=== PATIENT | male | born 1930 | race African-American/Black ===

== ENCOUNTER 2017-04-12 10:26 | Emergency (ER) | payer MEDICARE, OTHER ==
[~2017-04-12 10:26] MED LIST: ATOR1TAB18 PO; COLC1CAP3 PO; FINA5TAB2 PO; MIRA25TA PO; NAME5TAB2 PO
[2017-04-12 10:41] VITALS: BP 128/65; PULSE 88; RESP 18; TEMP 99; O2SAT 99
[2017-04-12 10:52] VITALS: BP 128/65; PULSE 84; RESP 20; TEMP 99; O2SAT 100
[2017-04-12 11:29] LABS: BASOPHIL % 0.4 % (0.0-2.0); EOSINOPHIL % 0.7 % (0.0-4.0); HEMATOCRIT 25.8 % (39.0-51.0); HEMO FLAGS DIFF FINAL; LYMPH % 18.8 % (9.0-44.0); LYMPHOCYTE # 0.9 TH/MM3 (1.0-4.8); MEAN CELL VOLUME 83.1 FL (80.0-100.0); MEAN CORPUSCULAR HEMOGLOBIN 27.1 PG (27.0-34.0); MEAN CORPUSCULAR HGB CONC 32.6 % (32.0-36.0); MONO % 14.8 % (0.0-8.0); NEUT % 65.3 % (16.0-70.0); PLATELET COUNT 204 TH/MM3 (150-450); RED CELL DISTRIBUTION WIDTH 15.6 % (11.6-17.2); WHITE BLOOD COUNT 4.6 TH/MM3 (4.0-11.0)
[2017-04-12 11:54] LABS: ALT (GPT) 19 U/L (12-78); ANION GAP 8 MEQ/L (5-15); AST (GOT) 22 U/L (15-37); BICARBONATE 29.4 MEQ/L (21.0-32.0); BLOOD UREA NITROGEN 27 MG/DL (7-18); CHLORIDE 105 MEQ/L (98-107); GLOMERULAR FILTRATION RATE 18 ML/MIN (>89); POTASSIUM 4.6 MEQ/L (3.5-5.1); SODIUM (NA) 142 MEQ/L (136-145)
[2017-04-12 11:55] LABS: ALKALINE PHOSPHATASE 76 U/L (45-117); TOTAL BILIRUBIN ADULT 0.6 MG/DL (0.2-1.0)
--- NOTE | 2017-04-12 12:18 | RADRPT ---
EXAM DATE/TIME: 04/12/2017 11:25 [facility] COMPARISON: No previous studies available for comparison. INDICATIONS : Fell today, hurt his right elbow. MEDICAL HISTORY : Dialysis 3 x a week SURGICAL HISTORY : None. ENCOUNTER: Initial ACUITY: 1 day PAIN SCORE: 6/10 LOCATION: Right elbow FINDINGS: Multiple view examination of the right elbow demonstrates soft tissue swelling without joint effusion , or fracture. The osseous structures are in normal alignment. Surgical clips are seen in soft tissu es anteriorly. Bony mineralization is normal. CONCLUSION: Soft tissue swelling without acute fracture. Anastacio Deluna MD on April 12, 2017 at 12:14 Board Certified Radiologist. This report was verified electronically.
--- NOTE | 2017-04-12 12:19 | PD ---
HPI Chief Complaint: Dizziness Time Seen by Provider: 11:02 Travel History International Travel<30 days: No Contact w/Intl Traveler<30days: No Traveled to known affect area: No History of Present Illness HPI Send 87-year-old presents to the emergency department following a dizzy spell. Patient drove to his primary doctor. Got a shot in his foot for some kind of problem in his foot and pain. He was walking back out to the car when he felt dizzy and fell over. He did not have loss of consciousness. It was unwitnessed. Patient states he felt a little bit dizzy this morning. He otherwise has been feeling generally well and healthy. He complains only of pain in his right elbow. Denies any head pain chest pain trouble breathing or other symptoms. Since his only medical history is hemodialysis him on Tuesday and Tuesday. History Past Medical History Narrative Medical End-stage renal disease, hemodialysis Tuesday Hypertension according to records hyperlipidemia PNEUMOCCOCAL Vaccine (Year): 1 Social History Alcohol Use: No Tobacco Use: No Allergies-Medications (Allergen,Severity, Reaction): Coded Allergies: No Known Allergies (Verified , 09/24/16) Reported Meds & Prescriptions Reported Meds & Active Scripts Active Reported Colchicine 0.6 Mg Cap 0.6 Mg PO DAILY PRN Myrbetriq (Mirabegron) 25 Mg Tab 25 Mg PO DAILY Namenda (Memantine) 5 Mg Tab 5 Mg PO DAILY Atorvastatin (Atorvastatin Calcium) 80 Mg Tab 80 Mg PO HS Finasteride 5 Mg Tab 5 Mg PO DAILY Do not crush. Review of Systems Except as stated in HPI: all other systems reviewed are Neg Physical Exam Narrative GENERAL: Well-appearing 87-year-old man, no acute distress. SKIN: Focused skin assessment warm/dry. HEAD: Atraumatic. Normocephalic. EYES: Pupils equal and round. No scleral icterus. No injection or drainage. ENT: No nasal bleeding or discharge. Mucous membranes pink and moist. NECK: No midline tenderness. Full painless range of motion. CARDIOVASCULAR: Regular rate and rhythm. No murmur appreciated. RESPIRATORY: No accessory muscle use. Clear to auscultation. Breath sounds equal bilaterally. GASTROINTESTINAL: Abdomen soft, non-tender, nondistended. Hepatic and splenic margins not palpable. MUSCULOSKELETAL: No obvious deformities. No edema. Right AV fistula palpable thrill. NEUROLOGICAL: Awake and alert. No obvious cranial nerve deficits. Motor grossly within normal limits. Normal speech. PSYCHIATRIC: Appropriate mood and affect; insight and judgment normal. Data Data Last Documented VS Vital Signs Date Time Temp Pulse Resp B/P Pulse Ox O2 Delivery O2 Flow Rate FiO2 04/12/17 10:52 88 20 99 Room Air 04/12/17 10:52 99.0 128/65 Orders Electrocardiogram (04/12/17 10:56) Complete Blood Count With Diff (04/12/17 10:56) Comprehensive Metabolic Panel (04/12/17 10:56) Iv Access Insert/Monitor (04/12/17 10:56) Ct Brain W/O Iv Contrast(Rout) (04/12/17 ) Elbow, Complete (4 Vws) (04/12/17 ) Labs Laboratory Tests Test 04/12/17 11:06 White Blood Count 4.6 TH/MM3 Red Blood Count 3.10 MIL/MM3 Hemoglobin 8.4 GM/DL Hematocrit 25.8 % Mean Corpuscular Volume 83.1 FL Mean Corpuscular Hemoglobin 27.1 PG Mean Corpuscular Hemoglobin 32.6 % Concent Red Cell Distribution Width 15.6 % Platelet Count 204 TH/MM3 Mean Platelet Volume 8.3 FL Neutrophils (%) (Auto) 65.3 % Lymphocytes (%) (Auto) 18.8 % Monocytes (%) (Auto) 14.8 % Eosinophils (%) (Auto) 0.7 % Basophils (%) (Auto) 0.4 % Neutrophils # (Auto) 3.0 TH/MM3 Lymphocytes # (Auto) 0.9 TH/MM3 Monocytes # (Auto) 0.7 TH/MM3 Eosinophils # (Auto) 0.0 TH/MM3 Basophils # (Auto) 0.0 TH/MM3 CBC Comment DIFF FINAL Differential Comment Sodium Level 142 MEQ/L Potassium Level 4.6 MEQ/L Chloride Level 105 MEQ/L Carbon Dioxide Level 29.4 MEQ/L Anion Gap 8 MEQ/L Blood Urea Nitrogen 27 MG/DL Creatinine 3.89 MG/DL Estimat Glomerular Filtration 18 ML/MIN Rate Random Glucose 90 MG/DL Calcium Level 9.2 MG/DL Total Bilirubin 0.6 MG/DL Aspartate Amino Transf 22 U/L (AST/SGOT) Alanine Aminotransferase 19 U/L (ALT/SGPT) Alkaline Phosphatase 76 U/L Total Protein 7.1 GM/DL Albumin 3.3 GM/DL MDM Medical Decision Making Medical Screen Exam Complete: Yes Emergency Medical Condition: Yes Interpretation(s) My review of EKG: Normal sinus rhythm at a rate of 88, leftward axis, septal Q waves, no definite evidence of acute ischemia. Compared to previous EKG from September 24, 2016, no significant change. LABS: CBC remarkable for mild anemia, roughly consistent with baseline although gently downward trending over the past year or so. CMP remarkable for elevated BUN/creatinine. X-ray right elbow: Soft tissue swelling without fracture. CT head: Negative. Differential Diagnosis Lightheadedness, anemia, electrolyte abnormality, infection, other Narrative Course Medical decision-making 87 year-old woman presents emergent department of lightheadedness and dizziness. Looks overall well. We'll check CT head for any evidence of injury from fall. We'll check EKG and labs. Likely discharge if negative. Wong Azevedo MD Apr 12, 2017 12:19
--- NOTE | 2017-04-12 12:19 | RADRPT ---
EXAM DATE/TIME: 04/12/2017 11:52 [facility] COMPARISON: CT BRAIN W/O CONTRAST, March 02, 2016, 21:33. INDICATIONS : Syncopal episode today, hit back of head RADIATION DOSE: 39.69 CTDIvol (mGy) MEDICAL HISTORY : Hypertension. Renal failure, chronic. SURGICAL HISTORY : None. ENCOUNTER: Initial ACUITY: 1 day PAIN SCALE: 2/10 LOCATION: occipital TECHNIQUE: Multiple contiguous axial images were obtained of the head. Using automated exposure control and adj ustment of the mA and/or kV according to patient size, radiation dose was kept as low as reasonably a chievable to obtain optimal diagnostic quality images. FINDINGS: CEREBRUM: The ventricles are normal for age. There is low attenuation throughout the white matter. No evidence of midline shift, mass lesion, hemorrhage or acute infarction. No extra-axial fluid collections are seen. POSTERIOR FOSSA: The cerebellum and brainstem are intact. The 4th ventricle is midline. The cerebellopontine angle i s unremarkable. EXTRACRANIAL: The visualized portion of the orbits is intact. SKULL: The calvaria is intact. No evidence of skull fracture. CONCLUSION: No acute intracranial disease. Nonspecific white matter changes. Anastacio Deluna MD on April 12, 2017 at 12:16 Board Certified Radiologist. This report was verified electronically.
--- NOTE | 2017-04-12 17:09 | EKG ---
Date Performed: 04/12/2017 Time Performed: 10:46:27 PTAGE: 87 years EKG: Sinus rhythm POSSIBLE LEFT ATRIAL ENLARGEMENT SEPTAL MYOCARDIAL INFARCTION ABNORMAL ECG PREVIOUS TRACING : 09/24/2016 10.00 No significant change from previous tracing noted. DOCTOR: Yahir Moran Interpretating Date/Time 04/12/2017 17:06:45
== END 2017-04-12 15:12 | disposition home or self-care (01) ==
LOC: NEPC 10:26
DX: R42 Dizziness and giddiness (principal); R94.31 Abnormal electrocardiogram [ECG] [EKG]; M25.521 Pain in right elbow; N18.6 End stage renal disease; Z99.2 Dependence on renal dialysis
CPT/HCPCS: 70450; 73080; 80053; 85025; 93005

== ENCOUNTER 2017-04-23 19:28 | Observation (INO) | payer MEDICARE, OTHER ==
[~2017-04-23] VITALS: Ht 177.8 cm; Wt 70.0 kg
[2017-04-23 19:38] VITALS: BP 172/80; PULSE 100; RESP 18; TEMP 98.1; O2SAT 99
[2017-04-23] MEDS ORDERED: SODIUM CHLORIDE 0.9% FLUSH 10 ML FLUSH IVF PRN (19:45)
--- NOTE | 2017-04-23 19:49 | PD ---
HPI Chief Complaint: Syncope/Near-Syncope Time Seen by Provider: 19:49 Travel History International Travel<30 days: No Contact w/Intl Traveler<30days: No Traveled to known affect area: No History of Present Illness HPI 87-year-old male with history of hypertension, hypercholesterolemia, end-stage renal disease on hemodialysis Tuesday, Tuesday, Tuesday, presents the emergency department following a fall episode. Patient does not recall the fall but remembers being on the ground. He believes this was for 25 minutes "or so" before [facility] arrived. He believes the neighbor may have called [facility]. We [facility] arrived, they found him in a supine position on the floor. Patient does not believe he hit his head but cannot recall. Patient reports no chest or tightness. No difficulty breathing. States that at times he does feel dizzy. Patient was seen and evaluated here in April 13 following a syncopal episode area he is discharged home at that time. Patient has no other symptoms. He does live alone. PFSH Past Medical History Arthritis: No Asthma: No Anxiety: No Heart Rhythm Problems: No Cancer: No Cardiovascular Problems: No High Cholesterol: Yes Chest Pain: No Congestive Heart Failure: No COPD: No Cerebrovascular Accident: No Diabetes: No Dialysis: Yes Gastrointestinal Disorders: No GERD: No Headaches: No Hepatitis: No Hiatal Hernia: No Hypertension: Yes Implanted Vascular Access Dvce: Yes (AV SHUNT RUE 07/07/11) Kidney Stones: No Medical other: Yes (arthritis,anemia) Musculoskeletal: No Neurologic: No Psychiatric: No Reproductive: No Respiratory: No Migraines: No Renal Failure: Yes Seizures: No Sleep Apnea: No Thyroid Disease: No Ulcer: No PNEUMOCCOCAL Vaccine (Year): 1 ?: Not Past Surgical History Abdominal Surgery: No AICD: No Arteriovenous Shunt: No Cardiac Surgery: No Ear Surgery: No Endocrine Surgery: No Eye Surgery: No Genitourinary Surgery: No Gynecologic Surgery: No Insulin Pump: No Oral Surgery: Yes (t and a) Pacemaker: No Thoracic Surgery: Yes Tonsillectomy: Yes (T&A) Other Surgery: Yes (R. A/V FISTULA) Social History Alcohol Use: No Tobacco Use: No Substance Use: No Allergies-Medications (Allergen,Severity, Reaction): Coded Allergies: No Known Allergies (Verified , 04/23/17) Reported Meds & Prescriptions Reported Meds & Active Scripts Active Reported Colchicine 0.6 Mg Cap 0.6 Mg PO DAILY PRN Myrbetriq (Mirabegron) 25 Mg Tab 25 Mg PO DAILY Namenda (Memantine) 5 Mg Tab 5 Mg PO DAILY Atorvastatin (Atorvastatin Calcium) 80 Mg Tab 80 Mg PO HS Finasteride 5 Mg Tab 5 Mg PO DAILY Do not crush. Review of Systems Except as stated in HPI: all other systems reviewed are Neg Physical Exam Narrative GENERAL: Thin elderly male patient, lying in the stretcher, in no acute distress. SKIN: Focused skin assessment warm/dry. HEAD: Atraumatic. Normocephalic. EYES: Pupils equal and round. No scleral icterus. No injection or drainage. ENT: No nasal bleeding or discharge. Mucous membranes pink and moist. NECK: Trachea midline. CARDIOVASCULAR: Regular rate and rhythm. 3/6 systolic murmur appreciated. RESPIRATORY: No accessory muscle use. Clear to auscultation. Breath sounds equal bilaterally. GASTROINTESTINAL: Abdomen soft, non-tender, nondistended. Hepatic and splenic margins not palpable. MUSCULOSKELETAL: No obvious deformities. No clubbing. No cyanosis. 2+ left lower extremity edema. Distal pulses are palpable. Right upper extremity fistula with palpable thrill and audible bruit. NEUROLOGICAL: Awake and alert. No obvious cranial nerve deficits. Motor grossly within normal limits. Normal speech. Data Data Last Documented VS Vital Signs Date Time Temp Pulse Resp B/P Pulse Ox O2 Delivery O2 Flow Rate FiO2 04/23/17 19:56 99 Room Air 04/23/17 19:38 98.1 100 18 172/80 Orders Electrocardiogram (04/23/17 19:44) Basic Metabolic Panel (Bmp) (04/23/17 19:44) Complete Blood Count With Diff (04/23/17 19:44) Magnesium (Mg) (04/23/17 19:44) B-Type Natriuretic Peptide (04/23/17 19:44) Ckmb (Isoenzyme) Profile (04/23/17 19:44) Troponin I (04/23/17 19:44) Act Partial Throm Time (Ptt) (04/23/17 19:44) Prothrombin Time / Inr (Pt) (04/23/17 19:44) Chest, Single Ap (04/23/17 19:44) Ct Brain W/O Iv Contrast(Rout) (04/23/17 19:44) Ecg Monitoring (04/23/17 19:44) Iv Access Insert/Monitor (04/23/17 19:44) Oximetry (04/23/17 19:44) Sodium Chloride 0.9% Flush (Ns Flush) (04/23/17 19:45) Us Leg Venous Doppler (04/23/17 ) Labs Laboratory Tests Test 04/23/17 19:40 White Blood Count 8.4 TH/MM3 Red Blood Count 3.52 MIL/MM3 Hemoglobin 9.6 GM/DL Hematocrit 29.4 % Mean Corpuscular Volume 83.4 FL Mean Corpuscular Hemoglobin 27.3 PG Mean Corpuscular Hemoglobin 32.7 % Concent Red Cell Distribution Width 16.0 % Platelet Count 249 TH/MM3 Mean Platelet Volume 8.3 FL Neutrophils (%) (Auto) 72.4 % Lymphocytes (%) (Auto) 14.4 % Monocytes (%) (Auto) 12.5 % Eosinophils (%) (Auto) 0.3 % Basophils (%) (Auto) 0.4 % Neutrophils # (Auto) 6.1 TH/MM3 Lymphocytes # (Auto) 1.2 TH/MM3 Monocytes # (Auto) 1.0 TH/MM3 Eosinophils # (Auto) 0.0 TH/MM3 Basophils # (Auto) 0.0 TH/MM3 CBC Comment DIFF FINAL Differential Comment Prothrombin Time 11.0 SEC Prothromb Time International 1.0 RATIO Ratio Activated Partial 30.6 SEC Thromboplast Time Sodium Level 136 MEQ/L Potassium Level 4.6 MEQ/L Chloride Level 101 MEQ/L Carbon Dioxide Level 29.3 MEQ/L Anion Gap 6 MEQ/L Blood Urea Nitrogen 41 MG/DL Creatinine 3.79 MG/DL Estimat Glomerular Filtration 18 ML/MIN Rate Random Glucose 98 MG/DL Calcium Level 9.1 MG/DL Magnesium Level 2.0 MG/DL Total Creatine Kinase 98 U/L Troponin I LESS THAN 0.02 NG/ML B-Type Natriuretic Peptide 96 PG/ML MDM Medical Decision Making Medical Screen Exam Complete: Yes Emergency Medical Condition: Yes Medical Record Reviewed: Yes Differential Diagnosis Syncope versus near-syncope versus electrode abnormality versus cardiac etiology versus intracranial etiology versus minor head injury Narrative Course 87-year-old male presents to the emergency department following a syncopal episode. Patient appears without distress. He is moderately hypertensive. He also has left lower extremity swelling which he states he has noticed over the last week. Denies any pain. No Obvious trauma. CBC and BMP are consistent with previous lab work. BNP is 96. I discussed the patient with my attending physician. Being that this is the second syncopal episode in 2 weeks, we feel it is in the patient's best interest to be admitted for further syncopal workup. A call is made to [facility] for admission. Patient is in agreement with this plan of care. His cousin is at bedside and feels comfortable as well as the splenic care as patient does reside alone. Diagnosis Primary Impression: Syncope Qualified Code: R55 - Syncope, unspecified syncope type Additional Impressions: End stage renal disease Dementia Qualified Code: F03.90 - Dementia without behavioral disturbance, unspecified dementia type Admitting Information Admitting Physician Requests: Observation Condition: Stable Liza Chan Apr 23, 2017 19:49
[2017-04-23 19:56] VITALS: O2SAT 99
--- NOTE | 2017-04-23 20:06 | RADRPT ---
EXAM DATE/TIME: 04/23/2017 19:59 [facility] COMPARISON: CHEST SINGLE AP, March 12, 2016, 5:29. INDICATIONS : Heart palpitations. MEDICAL HISTORY : Hypercholesterolemia. Hypertension. Arthritis. Renal failure. Anemia. Gout. Pneumothorax. SURGICAL HISTORY : Tonsillectomy. AV shunt right arm. ENCOUNTER: Initial ACUITY: 1 day PAIN SCORE: 0/10 LOCATION: Bilateral chest FINDINGS: The heart size is normal. The lungs are clear. No effusion is seen. There are old healed right rib fr actures. There is a vascular stent seen in the right subclavian region. CONCLUSION: No acute abnormality seen. Samuel Arnold MD on April 23, 2017 at 20:03 Board Certified Radiologist. This report was verified electronically.
[2017-04-23 20:24] LABS: AUTOMATED NEUTROPHIL # 6.1 TH/MM3 (1.8-7.7); BASOPHIL % 0.4 % (0.0-2.0); EOSINOPHIL % 0.3 % (0.0-4.0); HEMATOCRIT 29.4 % (39.0-51.0); HEMO FLAGS DIFF FINAL; LYMPH % 14.4 % (9.0-44.0); LYMPHOCYTE # 1.2 TH/MM3 (1.0-4.8); MEAN CELL VOLUME 83.4 FL (80.0-100.0); MEAN CORPUSCULAR HEMOGLOBIN 27.3 PG (27.0-34.0); MEAN CORPUSCULAR HGB CONC 32.7 % (32.0-36.0); MONO % 12.5 % (0.0-8.0); NEUT % 72.4 % (16.0-70.0); PLATELET COUNT 249 TH/MM3 (150-450); RED BLOOD COUNT 3.52 MIL/MM3 (4.50-5.90); WHITE BLOOD COUNT 8.4 TH/MM3 (4.0-11.0)
[2017-04-23 20:38] LABS: APTT (PATIENT) 30.6 SEC (24.3-30.1)
--- NOTE | 2017-04-23 20:42 | RADRPT ---
EXAM DATE/TIME: 04/23/2017 19:59 [facility] COMPARISON: CT BRAIN W/O CONTRAST, April 12, 2017, 11:52. INDICATIONS : Syncopal episode today. RADIATION DOSE: 56.35 CTDIvol (mGy) MEDICAL HISTORY : Hypertension. SURGICAL HISTORY : AV shunt ENCOUNTER: Initial ACUITY: 1 day PAIN SCALE: 0/10 LOCATION: Bilateral head TECHNIQUE: Multiple contiguous axial images were obtained of the head. Using automated exposure control and adj ustment of the mA and/or kV according to patient size, radiation dose was kept as low as reasonably a chievable to obtain optimal diagnostic quality images. DICOM format image data is available electro nically for review and comparison. FINDINGS: CEREBRUM: The ventricles and cortical sulci are widened. There is low density seen throughout the cerebral whi te matter. No evidence of midline shift, mass lesion, hemorrhage or acute infarction. No extra-axial fluid collections are seen. POSTERIOR FOSSA: The cerebellum and brainstem are intact. The 4th ventricle is midline. The cerebellopontine angle i s unremarkable. EXTRACRANIAL: The visualized portion of the orbits is intact. SKULL: The calvaria is intact. No evidence of skull fracture. CONCLUSION: 1. No acute intracranial abnormality seen. 2. Age-related atrophy. 3. Decreased density in the cerebral white matter likely related to diffuse small vessel ischemic dem yelination. Samuel Arnold MD on April 23, 2017 at 20:38 Board Certified Radiologist. This report was verified electronically.
[2017-04-23 20:44] LABS: ANION GAP 6 MEQ/L (5-15); BICARBONATE 29.3 MEQ/L (21.0-32.0); BLOOD UREA NITROGEN 41 MG/DL (7-18); CHLORIDE 101 MEQ/L (98-107); GLOMERULAR FILTRATION RATE 18 ML/MIN (>89); POTASSIUM 4.6 MEQ/L (3.5-5.1); SODIUM (NA) 136 MEQ/L (136-145)
[2017-04-23 20:55] LABS: CREATINE KINASE 98 U/L (39-308)
--- NOTE | 2017-04-23 21:23 | RADRPT ---
EXAM DATE/TIME: 04/23/2017 20:15 [facility] COMPARISON: No previous studies available for comparison. INDICATIONS : Left leg swelling. MEDICAL HISTORY : Hypercholesterolemia. Hypertension. Arthritis. Renal failure. Anemia. Gout. Pneumothorax. SURGICAL HISTORY : Tonsillectomy. AV shunt right arm. ENCOUNTER: Initial ACUITY: 4 - 6 days PAIN SCORE: 5/10 LOCATION: Left leg. TECHNIQUE: Venous ultrasound of the leg was performed from the inguinal ligament to the proximal calf. Real-salvatore e, color Doppler and spectral tracing, compression and augmentation techniques were used. FINDINGS: There is normal compressibility of the deep venous system from the inguinal region to the proximal ca lf. No echogenic clot is seen in the lumen of the common femoral, femoral, popliteal, and posterior tibial veins. There is a normal response of the venous system to proximal and distal augmentation an d respiration. CONCLUSION: No DVT. Samuel Arnold MD on April 23, 2017 at 21:20 Board Certified Radiologist. This report was verified electronically.
[2017-04-23] MEDS ORDERED: SODIUM CHLOR 0.9% 1000 ML INJ 1,000 ML IV SCH (21:57)
[2017-04-23] MEDS ORDERED: ACETAMINOPHEN 325 MG TAB PO PRN (22:00)
[2017-04-23] MEDS ORDERED: SODIUM CHLORIDE 0.9% FLUSH 10 ML FLUSH IV FLUSH PRN (22:00)
[2017-04-23] MEDS ORDERED: LACTULOSE SYRUP 20 GM/30 ML CUP PO PRN (22:00)
[2017-04-23] MEDS ORDERED: BISACODYL 10 MG SUPP RECTAL PRN (22:00)
[2017-04-23] MEDS ORDERED: ONDANSETRON HCL 4 MG/2 ML VIAL IVP PRN (22:00)
[2017-04-23] MEDS ORDERED: ACETAMINOPHEN/HYDROcodone 325 MG/5 MG TAB PO PRN (22:00)
[2017-04-23] MEDS ORDERED: MAGNESIUM HYDROXIDE SUSP 30 ML CUP PO PRN (22:00)
[2017-04-23] MEDS ORDERED: SENNOSIDES 8.6 MG TAB PO PRN (22:00)
[2017-04-23] MEDS ORDERED: ACETAMINOPHEN/HYDROcodone 325 MG/10 MG TAB PO PRN (22:00)
--- NOTE | 2017-04-23 22:02 | HHI.HP ---
[facility] Primary Care Physician Samuel Padron MD Admission Diagnosis Syncope; ESRD Diagnoses: (1) Syncope Diagnosis: Principal (2) HTN (hypertension) Diagnosis: Principal (3) ESRD (end stage renal disease) on dialysis Diagnosis: Principal (4) Dementia Diagnosis: Principal Travel History International Travel<30 Days: No Contact w/Intl Traveler <30 Da: No Traveled to Known Affected Are: No History of Present Illness This is an 87-year-old male with a PMH of HTN, Hyperlipidemia and ESRD on HD M/W /F who was brought to the ER by EMS after syncopal event. Pt is poor historian and has little recall of events, but believes his neighbor called 911 after she came to check on him and found him on the floor. Does report episodes of dizziness, previous ER visit 04/12/17 for dizziness w/ near syncopal event, negative work up at that time and d/c'd home from ER w/ outpatient follow up. On arrival, BP 172/80, HR 100, O2 sat 99% on RA, Afebrile. CBC at baseline. Creatinine 3.79, previously 3.89 on 04/12/17. Troponin negative. INR 1.0. CT Head with no acute findings. CXR negative. LE Doppler negative for DVT. Pt lives at home alone, unsafe d/c home in light of recurrent pre-syncope/syncopal event. Review of Systems Except as stated in HPI: all other systems reviewed are Neg ROS: 14 point review of systems otherwise negative. Past Family Social History Past Medical History PMH: HTN, Hyperlipidemia and ESRD on HD M/W/F Past Surgical History PAST SURGICAL HISTORY: Tonsillectomy, RUE AV Fistula Allergies: Coded Allergies: No Known Allergies (Verified , 04/23/17) Family History PAST FAMILY HISTORY: Reviewed. No h/o DM or CAD Social History PAST SOCIAL HISTORY: Negative for alcohol, tobacco or drugs. Physical Exam Vital Signs Vital Signs Date Time Temp Pulse Resp B/P Pulse Ox O2 Delivery O2 Flow Rate FiO2 04/23/17 19:56 99 Room Air 04/23/17 19:38 98.1 100 18 172/80 99 Physical Exam PE: GENERAL: Thin, elderly black male in no acute distress. HEENT: PERRLA, EOMI. No scleral icterus or conjunctival pallor. No lid lag or facial droop. CARDIOVASCULAR: Regular rate and rhythm. No obvious murmurs to auscultation. No chest tenderness to palpation. RESPIRATORY: No obvious rhonchi or wheezing. Clear to auscultation. Breath sounds equal bilaterally. GASTROINTESTINAL: Abdomen soft, non-tender, nondistended. BS normal. MUSCULOSKELETAL: Extremities without clubbing, cyanosis, or edema. No obvious deformities. RUE AV Fistula w/ good thrill. NEUROLOGICAL: Awake, alert and oriented x4. No focal neurologic deficits. Moving both upper and lower extremities spontaneously. Laboratory Laboratory Tests Test 04/23/17 19:40 White Blood Count 8.4 Red Blood Count 3.52 Hemoglobin 9.6 Hematocrit 29.4 Mean Corpuscular Volume 83.4 Mean Corpuscular Hemoglobin 27.3 Mean Corpuscular Hemoglobin 32.7 Concent Red Cell Distribution Width 16.0 Platelet Count 249 Mean Platelet Volume 8.3 Neutrophils (%) (Auto) 72.4 Lymphocytes (%) (Auto) 14.4 Monocytes (%) (Auto) 12.5 Eosinophils (%) (Auto) 0.3 Basophils (%) (Auto) 0.4 Neutrophils # (Auto) 6.1 Lymphocytes # (Auto) 1.2 Monocytes # (Auto) 1.0 Eosinophils # (Auto) 0.0 Basophils # (Auto) 0.0 CBC Comment DIFF FINAL Differential Comment Prothrombin Time 11.0 Prothromb Time International 1.0 Ratio Activated Partial 30.6 Thromboplast Time Sodium Level 136 Potassium Level 4.6 Chloride Level 101 Carbon Dioxide Level 29.3 Anion Gap 6 Blood Urea Nitrogen 41 Creatinine 3.79 Estimat Glomerular Filtration 18 Rate Random Glucose 98 Calcium Level 9.1 Magnesium Level 2.0 Total Creatine Kinase 98 Troponin I LESS THAN 0.02 B-Type Natriuretic Peptide 96 Result Diagram: 04/23/17193904/23/171939 Assessment and Plan Problem List: (1) Syncope ICD Code: R55 Status: Acute (2) HTN (hypertension) ICD Code: I10 Status: Acute (3) ESRD (end stage renal disease) on dialysis ICD Code: N18.6 Status: Acute (4) Dementia ICD Code: F03.90 Status: Acute Assessment and Plan A/P: 1. Syncope: Recurrent. Recent ER visit for pre-syncopal event, pt w/ no recollection of syncope on this occasion, found down by EMS. CT Head w/ no acute findings, images reviewed by me. Trop negative, EKG w/ no acute changes. Will admit for observation as unsafe d/c home. PT for eval/tx. Case Management for assistance w/ d/c planning. Check serial cardiac enzymes to eval for underlying ischemia. Check U/a, IVF for hydration. 2. HTN: BP 170's on arrival, will monitor, start antihypertensives as needed. 3. ESRD on HD: M/W/F, follows w/ Dr. Toribio, will consult if needed. Last HD Tuesday without complications. 4. Dementia: Resume home Namenda. 5. DVT Prophylaxis: SCD/Teds. 6. Social work for d/c planning as needed. 7. Case discussed w/ ER physician at length. Problem Qualifiers (1) Syncope: Qualified Code: R55 - Syncope, unspecified syncope type (2) Dementia: Qualified Code: F03.90 - Dementia without behavioral disturbance, unspecified dementia type Maria Luisa Roberts MD Apr 23, 2017 22:02
[2017-04-23 22:42] VITALS: BP 132/64; PULSE 90; RESP 18; O2SAT 99
[2017-04-23 23:02] VITALS: BP 147/69; PULSE 70; RESP 21; TEMP 98.1; O2SAT 100
[2017-04-23 23:25] VITALS: PULSE 84
[2017-04-24] VITALS (11 sets, daily range): BP systolic 110–134; BP diastolic 51–62; PULSE 60–102; RESP 15–20; TEMP 96.4–98.6; O2SAT 96–100
[2017-04-24 07:26] LABS: BASOPHIL % 0.3 % (0.0-2.0); EOSINOPHIL % 0.5 % (0.0-4.0); HEMATOCRIT 26.6 % (39.0-51.0); HEMO FLAGS DIFF FINAL; LYMPH % 19.9 % (9.0-44.0); LYMPHOCYTE # 1.2 TH/MM3 (1.0-4.8); MEAN CELL VOLUME 83.1 FL (80.0-100.0); MEAN CORPUSCULAR HEMOGLOBIN 27.4 PG (27.0-34.0); MONO % 12.6 % (0.0-8.0); NEUT % 66.7 % (16.0-70.0); PLATELET COUNT 210 TH/MM3 (150-450); RED CELL DISTRIBUTION WIDTH 15.5 % (11.6-17.2); WHITE BLOOD COUNT 5.9 TH/MM3 (4.0-11.0)
[2017-04-24 07:45] LABS: ANION GAP 7 MEQ/L (5-15); AST (GOT) 14 U/L (15-37); BLOOD UREA NITROGEN 43 MG/DL (7-18); CHLORIDE 106 MEQ/L (98-107); GLOMERULAR FILTRATION RATE 18 ML/MIN (>89); POTASSIUM 4.6 MEQ/L (3.5-5.1); SODIUM (NA) 138 MEQ/L (136-145)
[2017-04-24 07:46] LABS: ALT (GPT) 16 U/L (12-78)
[2017-04-24 07:49] LABS: ALKALINE PHOSPHATASE 71 U/L (45-117); TOTAL BILIRUBIN ADULT 0.6 MG/DL (0.2-1.0)
--- NOTE | 2017-04-24 08:23 | HHI.PR ---
Subjective Remarks Follow-up for syncope. Patient states that he was in his kitchen last night with a friend making dinner and had a syncopal episode. He does think that he felt dizzy prior to the episode. He believes he didn't lose consciousness, but just for a few seconds. He denies any chest pain or shortness of breath. He normally ambulates with a cane at baseline. He denies any recent illness, vomiting, diarrhea. He states she's been eating well. He denies any prior episodes of passing out. Currently he is asymptomatic without complaints. His forms analyst is Dr. Toribio. He is oriented to his birthday, home address, month , year, knows he is in [place]. Objective Vitals Vital Signs Date Time Temp Pulse Resp B/P Pulse Ox O2 Delivery O2 Flow Rate FiO2 04/24/17 08:02 76 04/24/17 04:34 97.8 60 18 134/62 97 04/24/17 03:36 78 04/23/17 23:25 84 04/23/17 23:02 98.1 70 21 147/69 100 04/23/17 22:42 90 18 132/64 99 Nasal Cannula 2 04/23/17 19:56 99 Room Air 04/23/17 19:38 98.1 100 18 172/80 99 Result Diagram: 04/24/17 0633 04/24/17 0655 Imaging Last Impressions Head CT 04/23/171943 Signed Impressions: Service Date/Time: Sunday, April 23, 2017 19:59 - CONCLUSION: 1. No acute intracranial abnormality seen. 2. Age-related atrophy. 3. Decreased density in the cerebral white matter likely related to diffuse small vessel ischemic demyelination. Samuel Arnold MD Chest X-Ray 04/23/171943 Signed Impressions: Service Date/Time: Sunday, April 23, 2017 19:59 - CONCLUSION: No acute abnormality seen. Samuel Arnold MD Lower Extremity Ultrasound 04/23/17 0000 Signed Impressions: Service Date/Time: Sunday, April 23, 2017 20:15 - CONCLUSION: No DVT. Samuel Arnold MD Objective Remarks GENERAL: Well-developed well-nourished. In no acute distress. Oriented 4. SKIN: Warm and dry. RUE AVF with good thrill. HEENT: Normocephalic. Pupils equal and round. Mucous membranes pink and moist. CARDIOVASCULAR: Regular rate and rhythm. No murmur appreciated. RESPIRATORY: No accessory muscle use. Clear to auscultation. Breath sounds equal bilaterally. GASTROINTESTINAL: Abdomen soft, non-tender, nondistended. Bowel sounds x4. MUSCULOSKELETAL: No obvious deformities. No clubbing or cyanosis. No edema. NEUROLOGICAL: Awake and alert. No focal neurological deficits. Moves upper and lower extremities spontaneously. Normal speech. Strength 5/5. PSYCHIATRIC: Appropriate mood and affect; insight and judgment normal. A/P Problem List: (1) Syncope ICD Code: R55 Status: Acute (2) HTN (hypertension) ICD Code: I10 Status: Chronic (3) ESRD (end stage renal disease) on dialysis ICD Code: N18.6 Status: Chronic (4) Dementia ICD Code: F03.90 Status: Chronic Assessment and Plan 87-year-old male with a PMH of HTN, Hyperlipidemia and ESRD on HD M/W/ who presented after syncopal event Syncope: Sounds vasovagal. Reviewed: CT Head w/ no acute findings. Trop negative 3. EKG w/ no acute changes. Telemetry unremarkable overnight. -PT for eval/tx. -Orthostatics -Carotid ultrasound -Echocardiogram HTN: By history, although on no antihypertensives. Monitor. ESRD on HD: Chronic, stable. Consult nephrology to continue dialysis while admitted. Dementia: Oriented 4. Continue home Namenda. DVT Prophylaxis: SCD/Teds. Discharge Planning 1730 echocardiogram reviewed and essentially unremarkable. Non-orthostatic. Walked with PT, would benefit from a walker, otherwise no restrictions. D/W Dr. Stevens. Ok to DC if carotid ultrasound is unremarkable, which it was. Discussed with case management, patient has walker at home. At this point, the patient is medically clear for discharge regarding syncope. Unfortunately, the patient made extensive plans for discharge tomorrow. Currently, his neighbor on his street has the keys to his house for safe keeping , and his neighbor will not be available to give him the keys to his house from him until tomorrow, and thus he is not able to get into his house today. His cousin from [facility] was going to go supervisor picking crew the keys tomorrow, and then come and supervisor picking crew the patient from the hospital. The patient is scheduled for dialysis as outpatient at 9 AM tomorrow. Discussed with RN, who will contact the on-call case management. At this point, we are not able to discharge the patient today because he would not have access to his house. Also, we will need to make sure that arrangements are made for dialysis tomorrow as inpatient or outpatient. May have to admit the patient for inpatient dialysis per nephrology. Problem Qualifiers (1) Syncope: Qualified Code: R55 - Syncope, unspecified syncope type (2) HTN (hypertension): Qualified Code: I10 - Essential hypertension (3) Dementia: Qualified Code: F03.90 - Dementia without behavioral disturbance, unspecified dementia type Dexter Laureano Apr 24, 2017 08:23
[2017-04-24 08:51] LABS: BACTERIA, URINE RARE /hpf; BLOOD, URINE NEG (NEG); COMMENT (UR) CULT NOT INDICATED; CULTURE IF INDICATED CULT NOT INDICATED; GLUCOSE,URINE NEG (NEG); KETONE, URINE NEG (NEG); MUCUS URINE FEW /lpf (OCC); NITRITE,URINE NEG (NEG); PH, URINE 7.5 (5.0-8.5); SQUAMOUS EPITHELIAL CELL URINE <1 /hpf (0-5); URINE COLOR YELLOW (YELLW/STRAW)
[2017-04-24] MEDS ORDERED: NON-FORMULARY DRUG (Mirabegron (Myrbetriq) 25 MG) PO SCH (09:00)
[2017-04-24] MEDS: FINASTERIDE 5 MG TAB PO SCH (09:13)
[2017-04-24] MEDS: MEMANTINE HCL 5 MG TAB PO SCH (09:13)
[2017-04-24] MEDS: SODIUM CHLORIDE 0.9% FLUSH 10 ML FLUSH IV FLUSH SCH ×2 (09:13→21:09)
[2017-04-24] MEDS: DOCUSATE SODIUM 50 MG/SENNA 8.6 MG TAB PO SCH ×2 (09:13→21:09)
--- NOTE | 2017-04-24 12:42 | ECHRPT ---
Indication: Cardiomyopathy, unspecified CONCLUSIONS Normal left ventricular size. Wall thickness is normal. The left ventricular systolic function is hyperdynamic with an estimated ejection fraction in the ra nge of 65- 70%. The left atrial size is upper limits of normal. Mild thickening of the mitral valve leaflets. Mild mitral annular calcification. Moderate mitral valve regurgitation. Mild thickening of the aortic valve leaflets. Aortic valve sclerosis is present. Trace aortic valve regurgitation. There is mild tricuspid valve regurgitation. There is estimated mild pulmonary hypertension present (range 40-50 mmHg). The pulmonary valve is not well visualized. Trivial pulmonary valve regurgitation. BP: / HR: Rhythm: MEASUREMENTS (Male / Female) Normal Values Technical Quality:Good 2D ECHO LV Diastolic Diameter PLAX 4.9 cm 4.2 - 5.9 / 3.9 - 5.3 cm LV Systolic Diameter PLAX 3.5 cm IVS Diastolic Thickness 0.7 cm 0.6 - 1.0 / 0.6 - 0.9 cm LVPW Diastolic Thickness 0.9 cm 0.6 - 1.0 / 0.6 - 0.9 cm LV Relative Wall Thickness 0.3 RV Internal Dim ED PLAX 2.8 cm LVOT Diameter 2.0 cm M-MODE Aortic Root Diameter MM 3.1 cm LA Systolic Diameter MM 4.1 cm LA Ao Ratio MM 1.3 AV Cusp Separation MM 1.9 cm DOPPLER AV Peak Velocity 180.0 cm/s AV Peak Gradient 13.0 mmHg AV Mean Gradient 6.0 mmHg AV Velocity Time Integral 36.7 cm LVOT Peak Velocity 88.7 cm/s LVOT Peak Gradient 3.1 mmHg LVOT Velocity Time Integral 21.9 cm AV Area Cont Eq vti 1.9 cm AV Area Cont Eq pk 1.5 cm Mitral E Point Velocity 73.1 cm/s Mitral A Point Velocity 104.0 cm/s Mitral E to A Ratio 0.7 LV E' Lateral Velocity 8.6 cm/s Mitral E to LV E' Lateral Ratio 8.5 LV E' Septal Velocity 7.0 cm/s Mitral E to LV E' Septal Ratio 10.4 TR Peak Velocity 300.0 cm/s TR Peak Gradient 36.0 mmHg FINDINGS LEFT VENTRICLE Normal left ventricular size. Wall thickness is normal. The left ventricular systolic function is hyperdynamic with an estimated ejection fraction in the ra nge of 65- 70%. RIGHT VENTRICLE Normal right ventricular size and systolic function. LEFT ATRIUM The left atrial size is upper limits of normal. RIGHT ATRIUM The right atrial size is normal. ATRIAL SEPTUM Normal atrial septal thickness without atrial level shunting by limited color doppler interrogation. AORTA The aortic root and proximal ascending aorta are normal in size on limited imaging. MITRAL VALVE Mild thickening of the mitral valve leaflets. Mild mitral annular calcification. Moderate mitral valve regurgitation. AORTIC VALVE Trileaflet aortic valve. Mild thickening of the aortic valve leaflets. Aortic valve sclerosis is present. Trace aortic valve regurgitation. TRICUSPID VALVE Structurally normal tricuspid valve. There is mild tricuspid valve regurgitation. There is estimated mild pulmonary hypertension present (range 40-50 mmHg). PULMONARY VALVE The pulmonary valve is not well visualized. Trivial pulmonary valve regurgitation. VESSELS The inferior vena cava is normal in size. PERICARDIUM No pericardial effusion. Nate Myers MD (Electronically Signed) Final Date:24 April 2017 12:41
--- NOTE | 2017-04-24 14:34 | EKG ---
Date Performed: 04/23/2017 Time Performed: 19:44:23 PTAGE: 87 years EKG: Sinus rhythm POSSIBLE LEFT ATRIAL ENLARGEMENT POSSIBLE RIGHT VENTRICULAR CONDUCTION DELAY POSSIBLE LEFT VENTRICUL AR HYPERTROPHY ABNORMAL ECG PREVIOUS TRACING : 04/12/2017 10.46 Peaked precordial T waves with a narrow base. Hyperkalemia should be excluded clinically. Since the prior tracing, there has been some increase of peaking in T waves, but otherwise no significant serial change. DOCTOR: Anitra Avila Interpretating Date/Time 04/24/2017 14:33:00
[2017-04-24] MEDS ORDERED: WALKER WHEELS/F1 MIS (15:31)
--- NOTE | 2017-04-24 15:44 | HHI.PR ---
Subjective Remarks This patient is an 87-year-old gentleman with a history of end-stage renal disease, hypertension on maintenance hemodialysis Tuesday and Tuesday. Patient now admitted with syncopal or near syncopal episode. Patient's mental status appears to be at baseline currently. He has been becoming forgetful as an outpatient in our social services manager has been involved with the family regarding possible placement in assisted living. Objective Vital Signs Date Time Temp Pulse Resp B/P Pulse Ox O2 Delivery O2 Flow Rate FiO2 04/24/17 15:33 97.9 82 15 124/60 96 04/24/17 12:44 74 04/24/17 12:08 98.6 81 15 117/61 100 04/24/17 08:40 120/61 110/60 116/51 04/24/17 08:25 96.6 80 19 132/62 100 04/24/17 08:02 76 04/24/17 04:34 97.8 60 18 134/62 97 04/24/17 03:36 78 04/23/17 23:25 84 04/23/17 23:02 98.1 70 21 147/69 100 04/23/17 22:42 90 18 132/64 99 Nasal Cannula 2 04/23/17 19:56 99 Room Air 04/23/17 19:38 98.1 100 18 172/80 99 I/O 04/23/17 04/23/17 04/23/17 04/24/17 04/24/17 04/24/17 07:00 15:00 23:00 07:00 15:00 23:00 Intake Total 120 ml Balance 120 ml Intake Oral 120 ml # Voids 1 # Bowel Movements 1 Patient not in respiratory distress. Lungs clear to auscultation. Heart sounds 1 and 2 regular. Abdomen soft nontender. AV fistula right with good bruit and thrill. No peripheral edema. Result Diagram: 04/24/17 0633 04/24/17 0655 Assessment and Plan Problem List: (1) ESRD (end stage renal disease) on dialysis Status: Chronic Plan: Patient's hemodialysis days are Tuesday and Tuesday. Appears to be stable from a renal point of view. Patient apparently is under observation status. Inpatient dialysis services including hemodialysis are not covered under observation status. If the patient does require dialysis tomorrow in house please reevaluate observation status and make patient full admit if indicated. If patient is made a full admit nephrology consultation with inpatient dialysis will follow. Robetr Toribio MD Apr 24, 2017 15:44
--- NOTE | 2017-04-24 16:53 | RADRPT ---
EXAM DATE/TIME: 04/24/2017 14:29 [facility] COMPARISON: US CAROTID ARTERIES, March 02, 2016, 19:43. INDICATIONS : Syncope. MEDICAL HISTORY : Hyperparathyroidism. Hypertension. Arthritis. Renal disease and failure. SURGICAL HISTORY : Tonsillectomy. Adenoicecotmy. Right AV fistula. Dialysis . ENCOUNTER: Initial ACUITY: 2 days PAIN SCORE: 0/10 LOCATION: Bilateral neck PEAK SYSTOLIC VELOCITIES (cm/sec): ICA/CCA RATIO: Right: 0.8 Left: 1.4 ICA: Right: 88 Left: 104 CCA: Right: 110 Left: 74 ECA: Right: 76 Left: 67 VERTEBRAL: Right: 62 antegrade Left: 96 antegrade Elevated flow velocities and ICA/CCA ratios have been found to correlate with increased degrees of vessel stenosis, calculated as percentage of diameter relative to a normal segment of distal ICA/CCA FINDINGS: RIGHT CAROTID: No significant stenosis is visualized. The waveforms are within normal limits. LEFT CAROTID: There is mild plaque at the carotid bulb region. No significant stenosis is visualized. The waveform s are within normal limits. VERTEBRAL ARTERIES: Antegrade flow is seen in both vertebral arteries. MISCELLANEOUS: None. CONCLUSION: Mild plaque at the left carotid bulb region without any significant stenosis seen throughout the stud y. Samuel Arnold MD on April 24, 2017 at 16:49 Board Certified Radiologist. This report was verified electronically.
[2017-04-24] MEDS ORDERED: ATORVASTATIN 80 MG TAB PO SCH (21:00)
[2017-04-25 00:06] VITALS: PULSE 77
[2017-04-25 04:13] VITALS: BP_SYST 132; BP_SYST 133; BP_SYST 136; BP_DIAS 63; BP_DIAS 68; BP_DIAS 69; PULSE 73; RESP 16; TEMP 98; O2SAT 100
[2017-04-25 04:22] VITALS: PULSE 86
[2017-04-25 07:50] VITALS: BP 121/66; PULSE 77; RESP 12; TEMP 97.8; O2SAT 98
--- NOTE | 2017-04-25 08:13 | HHI.PR ---
Subjective Remarks Follow up for syncope. The patient is awake, alert, oriented x4. He has no medical complaints. Denies any headache, lightheadedness, dizziness, chest pain , palpitations, shortness of breath, or abdominal complaints. He is due for dialysis today. Objective Vitals Vital Signs Date Time Temp Pulse Resp B/P Pulse Ox O2 Delivery O2 Flow Rate FiO2 04/25/17 04:22 86 04/25/17 04:13 98.0 73 16 132/63 100 136/68 133/69 04/25/17 00:06 77 04/24/17 20:25 82 04/24/17 20:00 96.4 89 20 115/57 100 04/24/17 16:12 102 04/24/17 15:33 97.9 82 15 124/60 96 04/24/17 12:44 74 04/24/17 12:08 98.6 81 15 117/61 100 04/24/17 08:40 120/61 110/60 116/51 04/24/17 08:25 96.6 80 19 132/62 100 04/24/17 08:02 76 I/O 04/24/17 04/24/17 04/24/17 04/25/17 04/25/17 04/25/17 07:00 15:00 23:00 07:00 15:00 23:00 Intake Total 120 ml Balance 120 ml Intake Oral 120 ml # Voids 1 1 # Bowel Movements 1 Result Diagram: 04/24/17 0633 04/24/17 0655 Imaging Last Impressions Carotid Artery Ultrasound 04/24/17 0000 Signed Impressions: Service Date/Time: Monday, April 24, 2017 14:29 - CONCLUSION: Mild plaque at the left carotid bulb region without any significant stenosis seen throughout the study. Samuel Arnold MD Head CT 04/23/171943 Signed Impressions: Service Date/Time: Sunday, April 23, 2017 19:59 - CONCLUSION: 1. No acute intracranial abnormality seen. 2. Age-related atrophy. 3. Decreased density in the cerebral white matter likely related to diffuse small vessel ischemic demyelination. Samuel Arnold MD Chest X-Ray 04/23/171943 Signed Impressions: Service Date/Time: Sunday, April 23, 2017 19:59 - CONCLUSION: No acute abnormality seen. Samuel Arnold MD Lower Extremity Ultrasound 04/23/17 0000 Signed Impressions: Service Date/Time: Sunday, April 23, 2017 20:15 - CONCLUSION: No DVT. Samuel Arnold MD Objective Remarks GENERAL: Well-nourished, well-developed elderly male patient in [facility]. SKIN: Warm and dry. No rash. HEENT: Normocephalic. Atraumatic. Pupils equal and round. Mucous membranes pink and moist. NECK: Supple. Trachea midline. CARDIOVASCULAR: Regular rate and rhythm. S1, S2 noted. No murmur appreciated. RESPIRATORY: No accessory muscle use. Clear to auscultation. Breath sounds equal bilaterally. GASTROINTESTINAL: Abdomen soft, non-tender, nondistended. Normoactive bowel sounds x4. MUSCULOSKELETAL: No obvious deformities. Extremities without clubbing, cyanosis , or edema. NEUROLOGICAL: Awake and alert. No obvious cranial nerve deficits. Motor grossly within normal limits. 5/5 muscle strength in bilateral upper and lower extremities. Normal speech. PSYCHIATRIC: Appropriate mood and affect; insight and judgment normal. Medications and IVs Current Medications Medications (Trade) Dose Ordered Sig/Jonathon Route Start Time Stop Time Status Last Admin (NS Flush) 2 ml UNSCH PRN IVF 04/23/17 19:45 (NS Flush) 2 ml UNSCH PRN IV FLUSH 04/23/17 22:00 (NS Flush) 2 ml BID IV FLUSH 04/24/17 09:00 04/24/17 21:09 (Zofran Inj) 4 mg Q6H PRN IVP 04/23/17 22:00 (Tylenol) 650 mg Q6H PRN PO 04/23/17 22:00 ([place] 5-325 Mg) 1 tab Q4H PRN PO 04/23/17 22:00 ([place] 10-325 Mg) 1 tab Q4H PRN PO 04/23/17 22:00 (Lizzie-Colace) 1 tab BID PO 04/24/17 09:00 04/24/17 21:09 (Milk Of Magnesia Liq) 30 ml Q12H PRN PO 04/23/17 22:00 (Senokot) 17.2 mg Q12H PRN PO 04/23/17 22:00 (Dulcolax Supp) 10 mg DAILY PRN RECTAL 04/23/17 22:00 (Lactulose Liq) 30 ml DAILY PRN PO 04/23/17 22:00 (Lipitor) 80 mg HS PO 04/24/17 21:00 04/24/17 21:09 (Proscar) 5 mg DAILY PO 04/24/17 09:00 04/24/17 09:13 (Namenda) 5 mg DAILY PO 04/24/17 09:00 04/24/17 09:13 Patient Own Medication PT OWN MED: NON-FORMULARY D... DAILY PO 04/24/17 09:00 Hold A/P Problem List: (1) Syncope ICD Code: R55 Status: Acute (2) HTN (hypertension) ICD Code: I10 Status: Chronic (3) ESRD (end stage renal disease) on dialysis ICD Code: N18.6 Status: Chronic (4) Dementia ICD Code: F03.90 Status: Chronic Assessment and Plan 87-year-old male with a PMH of HTN, Hyperlipidemia and ESRD on HD M/W/ who presented after syncopal event Syncope: Suspect vasovagal. Reviewed: CT Head w/ no acute findings. Trop negative 3. EKG w/ no acute changes. Telemetry unremarkable. -PT for eval/tx, no PT needed at discharge -Orthostatics negative -Carotid ultrasound unremarkable. -Echocardiogram normal with EF 65-70% -no further events throughout admission HTN: By history, although on no antihypertensives. Monitor. BP well controlled. ESRD on HD: Chronic, stable. Consult nephrology. Dementia: Oriented 4. Continue home Namenda. DVT Prophylaxis: SCD/Teds. Discharge Planning Case management assisting with discharge planing. The patient will be going straight to dialysis from [place]. Discharge patient to home Condition on discharge: Improved Renal Diet as tolerated Ad Anusha activity Rx written: no new meds Follow-up with primary care physician Dr. Padron within 1 week Problem Qualifiers (1) Syncope: Qualified Code: R55 - Syncope, unspecified syncope type (2) HTN (hypertension): Qualified Code: I10 - Essential hypertension (3) Dementia: Qualified Code: F03.90 - Dementia without behavioral disturbance, unspecified dementia type Jayashree Casas PA-C Apr 25, 2017 8:12 am
--- NOTE | 2017-04-25 08:13 | HHI.DCPOC ---
Discharge Care Plan Diagnosis: (1) Syncope (2) ESRD (end stage renal disease) on dialysis (3) Dementia Goals to Promote Your Health * To prevent worsening of your condition and complications * To maintain your health at the optimal level Directions to Meet Your Goals Take your medications as prescribed Follow your dietary instruction Follow activity as directed Keep your appointments as scheduled Take your immunizations and boosters as scheduled If your symptoms worsen call your PCP, if no PCP go to Urgent Care Center or Emergency Room Smoking is Dangerous to Your Health. Avoid second hand smoke Call the 24-hour hour crisis hotline for domestic abuse at Jayashree Casas PA-C Apr 25, 2017 8:13 am
[2017-04-25] MEDS: DOCUSATE SODIUM 50 MG/SENNA 8.6 MG TAB PO SCH (08:34)
[2017-04-25] MEDS: MEMANTINE HCL 5 MG TAB PO SCH (08:34)
[2017-04-25] MEDS: FINASTERIDE 5 MG TAB PO SCH (08:34)
[2017-04-25 08:35] VITALS: PULSE 78
[2017-04-25] MEDS: SODIUM CHLORIDE 0.9% FLUSH 10 ML FLUSH IV FLUSH SCH (08:35)
[2017-04-25 16:50] VITALS: BP 113/68; PULSE 76; RESP 18; TEMP 98.2; O2SAT 98
== END 2017-04-25 17:25 | disposition home or self-care (01) ==
LOC: NEPC 19:28 → NEDA 21:45 → NEPFCDU 22:50
PROVIDERS: ADMIT Family Medicine; ATTEND Family Medicine
DX: R55 Syncope and collapse (principal); R42 Dizziness and giddiness; R94.31 Abnormal electrocardiogram [ECG] [EKG]; R00.2 Palpitations; M79.89 Other specified soft tissue disorders; I12.0 Hypertensive chronic kidney disease with stage 5 chronic kidney disease or end stage renal disease; N18.6 End stage renal disease; F03.90 Unspecified dementia, unspecified severity, without behavioral disturbance, psychotic disturbance, mood disturbance, and anxiety; E78.5 Hyperlipidemia, unspecified; E78.00 Pure hypercholesterolemia, unspecified; E21.3 Hyperparathyroidism, unspecified; M19.90 Unspecified osteoarthritis, unspecified site; Z99.2 Dependence on renal dialysis; W19.XXXA Unspecified fall, initial encounter
CPT/HCPCS: 70450; 71010; 80048; 80053; 81001; 82550; 83735; 83880; 84484; 85025; 85610; 85730; 93005; 93306; 93880; 93971; 97162; 99285; G0378; G8987; G8988; J7030

== ENCOUNTER 2017-04-29 17:57 | Observation (INO) | payer MEDICARE, OTHER ==
[~2017-04-29] VITALS: Ht 170.2 cm; Wt 67.0 kg
[~2017-04-29 17:57] MED LIST changes: +WALKER WHEELS/F1 MIS
[2017-04-29 18:21] VITALS: BP 130/72; PULSE 85; RESP 16; TEMP 97.8; O2SAT 99
[2017-04-29 18:24] VITALS: BP 130/72; PULSE 84; RESP 16; O2SAT 100
--- NOTE | 2017-04-29 18:57 | PD ---
HPI Chief Complaint: Altered Mental Status Time Seen by Provider: 18:33 Travel History International Travel<30 days: No Contact w/Intl Traveler<30days: No Traveled to known affect area: No History of Present Illness HPI 87-year-old male was brought in by EMS from home. Patient had a syncopal episode and fell to the floor at home today. Patient does not remember the episode. Family members state that they heard a loud noise and found the patient unresponsive on the floor for about 2 minutes. EMS was called. Patient was brought to ED for evaluation. Patient denies any headache. Patient denies any neck pain. Patient denies any chest pain or shortness of breath. Patient denies abdominal pain. Patient denies any nausea vomiting diarrhea. Patient denies any fever chills. Patient denies any focal weakness or numbness of extremity. Patient has history of end-stage renal disease on dialysis. Patient had dialysis Tuesday and Tuesday. 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 Patient had dialysis today. PFSH Past Medical History Anemia: Yes Arthritis: No Asthma: No Anxiety: No Heart Rhythm Problems: No Cancer: No Cardiovascular Problems: No High Cholesterol: Yes Chest Pain: No Congestive Heart Failure: No COPD: No Cerebrovascular Accident: No Diabetes: No Dialysis: Yes Gastrointestinal Disorders: No GERD: No Headaches: No Hepatitis: No Hiatal Hernia: No Hypertension: Yes Implanted Vascular Access Dvce: Yes (AV SHUNT RUE 07/07/11) Kidney Stones: No Medical other: Yes (arthritis,anemia) Musculoskeletal: No Neurologic: No Psychiatric: No Reproductive: No Respiratory: No Migraines: No Renal Failure: Yes Seizures: No Sleep Apnea: No Thyroid Disease: No Ulcer: No Influenza Vaccination: No PNEUMOCCOCAL Vaccine (Year): 1 Past Surgical History Abdominal Surgery: No AICD: No Arteriovenous Shunt: No Cardiac Surgery: No Ear Surgery: No Endocrine Surgery: No Eye Surgery: No Genitourinary Surgery: No Gynecologic Surgery: No Insulin Pump: No Oral Surgery: Yes (t and a) Pacemaker: No Thoracic Surgery: Yes Tonsillectomy: Yes (T&A) Other Surgery: Yes (R. A/V FISTULA) Social History Alcohol Use: No Tobacco Use: No Substance Use: No Allergies-Medications (Allergen,Severity, Reaction): Coded Allergies: No Known Allergies (Verified , 04/29/17) Reported Meds & Prescriptions Reported Meds & Active Scripts Active Walker with Front Wheels (Device) 1 Mis Mis 1 Ea .ROUTE DIRECTED Reported Colchicine 0.6 Mg Cap 0.6 Mg PO DAILY PRN Myrbetriq (Mirabegron) 25 Mg Tab 25 Mg PO DAILY Namenda (Memantine) 5 Mg Tab 5 Mg PO DAILY Atorvastatin (Atorvastatin Calcium) 80 Mg Tab 80 Mg PO HS Finasteride 5 Mg Tab 5 Mg PO DAILY Do not crush. Review of Systems General / Constitutional: No: Fever Eyes: No: Visual changes HENT: No: Headaches Cardiovascular: No: Chest Pain or Discomfort Respiratory: No: Shortness of Breath Gastrointestinal: No: Abdominal Pain Genitourinary: No: Dysuria Musculoskeletal: No: Pain Skin: No Rash Neurologic: No: Weakness Psychiatric: No: Depression Endocrine: No: Polydipsia Hematologic/Lymphatic: No: Easy Bruising Physical Exam Narrative GENERAL: Well-nourished, well-developed patient. SKIN: Focused skin assessment warm/dry. HEAD: Normocephalic. EYES: No scleral icterus. No injection or drainage. NECK: Supple, trachea midline. No JVD or lymphadenopathy. CARDIOVASCULAR: Regular rate and rhythm without murmurs, gallops, or rubs. RESPIRATORY: Breath sounds equal bilaterally. No accessory muscle use. GASTROINTESTINAL: Abdomen soft, non-tender, nondistended. MUSCULOSKELETAL: No cyanosis, or edema. BACK: Nontender without obvious deformity. No CVA tenderness. Neurologic exam: Patient's awake and alert oriented to place and person. Patient moves all extremities well. No obvious focal neurological deficit. Data Data Last Documented VS Vital Signs Date Time Temp Pulse Resp B/P Pulse Ox O2 Delivery O2 Flow Rate FiO2 04/29/17 18:24 84 16 130/72 100 Room Air 04/29/17 18:21 97.8 Orders Electrocardiogram (04/29/17 18:53) Complete Blood Count With Diff (04/29/17 18:53) Comprehensive Metabolic Panel (04/29/17 18:53) Creatine Kinase (Cpk) (04/29/17 18:53) Troponin I (04/29/17 18:53) Prothrombin Time / Inr (Pt) (04/29/17 18:53) Act Partial Throm Time (Ptt) (04/29/17 18:53) Magnesium (Mg) (04/29/17 18:53) Thyroid Stimulating Hormone (04/29/17 18:53) MDM Medical Decision Making Medical Screen Exam Complete: Yes Emergency Medical Condition: Yes Differential Diagnosis Differential diagnosis including vasovagal reaction, TIA, CVA, electrolyte abnormality, dehydration, sepsis. Narrative Course 87-year-old male with syncope. Vlad Romero MD Apr 29, 2017 18:57
[2017-04-29] MEDS ORDERED: LOSA25TA PO (18:58)
[2017-04-29] MEDS ORDERED: GABA100C4 PO (18:58)
[2017-04-29] MEDS ORDERED: FERR324T4 PO (18:58)
[2017-04-29] MEDS ORDERED: VITATAB11 PO (18:58)
[2017-04-29] MEDS ORDERED: TAMS0.4C4 PO (18:58)
[2017-04-29] MEDS ORDERED: ATOR40TA16 PO (18:58)
[2017-04-29 19:11] VITALS: BP 119/65; PULSE 84; RESP 18; O2SAT 100
--- NOTE | 2017-04-29 19:31 | RADRPT ---
EXAM DATE/TIME: 04/29/2017 18:52 [facility] COMPARISON: CHEST SINGLE AP, April 23, 2017, 19:59. INDICATIONS : Chest pain due to fall tonight. MEDICAL HISTORY : Hypertension. SURGICAL HISTORY : AV shunt ENCOUNTER: Initial ACUITY: 1 day PAIN SCORE: 4/10 LOCATION: Bilateral chest FINDINGS: A single view of the chest demonstrates the lungs to be symmetrically aerated without evidence of mas s, infiltrate or effusion. The cardiomediastinal contours are unremarkable. Osseous structures are intact. CONCLUSION: No acute disease. Richie Sorensen MD FACR on April 29, 2017 at 19:29 Board Certified Radiologist. This report was verified electronically.
[2017-04-29 19:35] LABS: AUTOMATED NEUTROPHIL # 3.8 TH/MM3 (1.8-7.7); BASOPHIL % 0.4 % (0.0-2.0); EOSINOPHIL # 0.1 TH/MM3 (0-0.4); EOSINOPHIL % 1.2 % (0.0-4.0); HEMO FLAGS DIFF FINAL; LYMPH % 15.9 % (9.0-44.0); LYMPHOCYTE # 0.9 TH/MM3 (1.0-4.8); MEAN CELL VOLUME 82.2 FL (80.0-100.0); MEAN CORPUSCULAR HEMOGLOBIN 27.5 PG (27.0-34.0); MEAN CORPUSCULAR HGB CONC 33.5 % (32.0-36.0); MONO % 13.8 % (0.0-8.0); NEUT % 68.7 % (16.0-70.0); PLATELET COUNT 251 TH/MM3 (150-450); RED BLOOD COUNT 3.17 MIL/MM3 (4.50-5.90); RED CELL DISTRIBUTION WIDTH 15.2 % (11.6-17.2); WHITE BLOOD COUNT 5.5 TH/MM3 (4.0-11.0)
[2017-04-29 19:44] LABS: APTT (PATIENT) 27.7 SEC (24.3-30.1); PROTHROMBIN TIME - PATIENT 11.2 SEC (9.8-11.6)
--- NOTE | 2017-04-29 19:49 | RADRPT ---
EXAM DATE/TIME: 04/29/2017 19:38 [facility] COMPARISON: CT BRAIN W/O CONTRAST, April 23, 2017, 19:59. INDICATIONS : Altered mental status. RADIATION DOSE: 56.80 CTDIvol (mGy) MEDICAL HISTORY : Hypertension. Renal failure, chronic. Dialysis SURGICAL HISTORY : Right AV Shunt. ENCOUNTER: Initial ACUITY: 1 day PAIN SCALE: 0/10 LOCATION: Bilateral cranial TECHNIQUE: Multiple contiguous axial images were obtained of the head. Using automated exposure control and adjustment of the mA and/or kV according to patient size, radiation dose was kept as low as reasonably achievable to obtain optimal diagnostic quality images. DICOM format image data is av ailable electronically for review and comparison. FINDINGS: CEREBRUM: The ventricles are normal for age. No evidence of midline shift, mass lesion, hemorrha ge or acute infarction. No extra-axial fluid collections are seen. POSTERIOR FOSSA: The cerebellum and brainstem are intact. The 4th ventricle is midline. The cer ebellopontine angle is unremarkable. EXTRACRANIAL: The visualized portion of the orbits is intact. SKULL: The calvaria is intact. No evidence of skull fracture. CONCLUSION: Negative for acute process. Richie Sorensen MD FACR on April 29, 2017 at 19:47 Board Certified Radiologist. This report was verified electronically.
[2017-04-29 19:56] LABS: ANION GAP 6 MEQ/L (5-15); AST (GOT) 18 U/L (15-37); BICARBONATE 30.5 MEQ/L (21.0-32.0); BLOOD UREA NITROGEN 24 MG/DL (7-18); CHLORIDE 102 MEQ/L (98-107); GLOMERULAR FILTRATION RATE 27 ML/MIN (>89); POTASSIUM 4.1 MEQ/L (3.5-5.1); SODIUM (NA) 138 MEQ/L (136-145)
[2017-04-29 19:57] LABS: ALT (GPT) 19 U/L (12-78)
[2017-04-29 20:07] LABS: ALKALINE PHOSPHATASE 83 U/L (45-117); TOTAL BILIRUBIN ADULT 0.5 MG/DL (0.2-1.0)
[2017-04-29 20:08] LABS: CREATINE KINASE 75 U/L (39-308)
[2017-04-29 21:13] VITALS: BP 109/61; PULSE 86; RESP 18; O2SAT 99
[2017-04-29] MEDS ORDERED: ACETAMINOPHEN 325 MG TAB PO PRN (21:30)
[2017-04-29] MEDS ORDERED: MAGNESIUM HYDROXIDE SUSP 30 ML CUP PO PRN (21:30)
[2017-04-29] MEDS ORDERED: LACTULOSE SYRUP 20 GM/30 ML CUP PO PRN (21:30)
[2017-04-29] MEDS ORDERED: ONDANSETRON HCL 4 MG/2 ML VIAL IVP PRN (21:30)
[2017-04-29] MEDS ORDERED: NALOXONE HCL 0.4 MG/ML AMP IV PRN (21:30)
[2017-04-29] MEDS ORDERED: SENNOSIDES 8.6 MG TAB PO PRN (21:30)
[2017-04-29] MEDS ORDERED: BISACODYL 10 MG SUPP RECTAL PRN (21:30)
[2017-04-29] MEDS ORDERED: SODIUM CHLORIDE 0.9% FLUSH 10 ML FLUSH IV FLUSH PRN (21:30)
--- NOTE | 2017-04-29 21:44 | PD ---
Data Data Last Documented VS Vital Signs Date Time Temp Pulse Resp B/P Pulse Ox O2 Delivery O2 Flow Rate FiO2 04/29/17 21:13 86 18 109/61 99 Room Air 04/29/17 18:21 97.8 Orders Electrocardiogram (04/29/17 18:53) Complete Blood Count With Diff (04/29/17 18:53) Comprehensive Metabolic Panel (04/29/17 18:53) Creatine Kinase (Cpk) (04/29/17 18:53) Troponin I (04/29/17 18:53) Prothrombin Time / Inr (Pt) (04/29/17 18:53) Act Partial Throm Time (Ptt) (04/29/17 18:53) Magnesium (Mg) (04/29/17 18:53) Thyroid Stimulating Hormone (04/29/17 18:53) Phosphorus (Po4) (04/29/17 18:53) Chest, Single Ap (04/29/17 18:53) Ct Brain W/O Iv Contrast(Rout) (04/29/17 18:53) Iv Access Insert/Monitor (04/29/17 18:53) Ecg Monitoring (04/29/17 18:53) Oximetry (04/29/17 18:53) Admit Order (Ed Use Only) (04/29/17 ) Labs Laboratory Tests Test 04/29/17 18:55 White Blood Count 5.5 TH/MM3 Red Blood Count 3.17 MIL/MM3 Hemoglobin 8.7 GM/DL Hematocrit 26.0 % Mean Corpuscular Volume 82.2 FL Mean Corpuscular Hemoglobin 27.5 PG Mean Corpuscular Hemoglobin 33.5 % Concent Red Cell Distribution Width 15.2 % Platelet Count 251 TH/MM3 Mean Platelet Volume 8.1 FL Neutrophils (%) (Auto) 68.7 % Lymphocytes (%) (Auto) 15.9 % Monocytes (%) (Auto) 13.8 % Eosinophils (%) (Auto) 1.2 % Basophils (%) (Auto) 0.4 % Neutrophils # (Auto) 3.8 TH/MM3 Lymphocytes # (Auto) 0.9 TH/MM3 Monocytes # (Auto) 0.8 TH/MM3 Eosinophils # (Auto) 0.1 TH/MM3 Basophils # (Auto) 0.0 TH/MM3 CBC Comment DIFF FINAL Differential Comment Prothrombin Time 11.2 SEC Prothromb Time International 1.0 RATIO Ratio Activated Partial 27.7 SEC Thromboplast Time Sodium Level 138 MEQ/L Potassium Level 4.1 MEQ/L Chloride Level 102 MEQ/L Carbon Dioxide Level 30.5 MEQ/L Anion Gap 6 MEQ/L Blood Urea Nitrogen 24 MG/DL Creatinine 2.70 MG/DL Estimat Glomerular Filtration 27 ML/MIN Rate Random Glucose 101 MG/DL Calcium Level 8.8 MG/DL Phosphorus Level 2.5 MG/DL Magnesium Level 2.0 MG/DL Total Bilirubin 0.5 MG/DL Aspartate Amino Transf 18 U/L (AST/SGOT) Alanine Aminotransferase 19 U/L (ALT/SGPT) Alkaline Phosphatase 83 U/L Total Creatine Kinase 75 U/L Troponin I LESS THAN 0.02 NG/ML Total Protein 7.2 GM/DL Albumin 3.2 GM/DL Thyroid Stimulating Hormone 3.500 uIU/ML 3rd Gen [facility] Supervised Visit with JACK: No Interpretation(s) EKG shows normal sinus rhythm with a left axis deviation normal R-wave progression. Prominent T waves in V4 and V5 without ST segment changes. Intervals within normal limits. This is a borderline EKG. Narrative Course Patient care assumed from Dr. Romero at 1900. This an 87-year-old male with multiple syncopal episodes in the past week. He had one today and his nephew's visiting from out of town heard him fall and went to investigate and found the patient unconscious which she remained for approximately 2 minutes until EMS arrived. Initial workup is negative in the emergency department, review of his records shows on April 23 was made very similar and had a workup including echocardiogram and carotid ultrasound which was unfruitful. After lengthy discussion with the patient and his nephew the nephew is leaving town and is very concerned over the patient's ability to live at home. He has been admitted to a medical manner in the past and he cannot remember why. Dr. Romero and I shared concern for this patient's well-being at home. He is end-stage renal disease on dialysis Tuesday was dialyzed today. Is possible that he is just getting low on his fluids after dialysis. I recommended the patient be observed and possibly returned to [facility] manner and he is agreeable at this time. Patient was discussed with Dr. Ryan Bernal for observation. Diagnosis Primary Impression: Syncope Admitting Information Admitting Physician Requests: Observation Condition: Stable Martín Rascon MD Apr 29, 2017 21:44
[2017-04-29 22:46] VITALS: BP 100/56; PULSE 76; RESP 18; TEMP 98.1; O2SAT 100
--- NOTE | 2017-04-30 01:09 | HHI.HP ---
[facility] Samuel Padron MD Admission Diagnosis Syncope Diagnoses: Chief Complaint: fall at home Travel History International Travel<30 Days: No Contact w/Intl Traveler <30 Da: No Traveled to Known Affected Are: No History of Present Illness Written by HIGINIO Franklin acting as scribe for [Matthew] on 04/30/17 at 01:03. 72 y/o male with a history of ESRD was brought to the ED by family after falling at home and being unresponsive for 2 Mins. Patient is a poor historian and he does not remember falling. He complains of dizziness but can not elaborate on it, states he has occasional headaches. He denies any chest pain or sob. He doesn't remember his medical history or family history. He is oriented to self and time but unable to state where he is. No family is at bedside for questioning. Patient was recently admitted on April 23: Carotid US showed mild plaque at the left carotid bulb region without any significant stenosis. 2D echo showed left ventricular systolic hyperdynamic function with EF of 65-70%, aortic valve stenosis, moderate mitral valve regurgitation and mild tricuspid value regurgitation. Review of Systems ROS Limitations: Poor Historian Constitutional: COMPLAINS OF: Dizziness Respiratory: DENIES: Shortness of breath Cardiovascular: DENIES: Chest pain, Lower Extremity Edema Gastrointestinal: DENIES: Nausea, Vomiting Genitourinary: DENIES: Hematuria, Dysuria Musculoskeletal: COMPLAINS OF: Joint pain (left ankle), DENIES: Back pain, Neck pain Integumentary: DENIES: Rash Neurologic: COMPLAINS OF: Headache Past Family Social History Past Medical History Per EMR: HTN Hyperlipidemia ESRD on HD M/W/F Past Surgical History Per EMR: Tonsillectomy RUE AV Fistula Reported Medications Reported Meds & Active Scripts Active Reported Tamsulosin (Tamsulosin HCl) 0.4 Mg Cap 0.4 Mg PO HS Gabapentin 100 Mg Cap 200 Mg PO HS Vitamin B Complex (B-Complex Vitamins) 1 Tab 1 Tab PO DAILY Ferrous Sulfate DR (Ferrous Sulfate) 324 Mg Tabdr 324 Mg PO DAILY Losartan (Losartan Potassium) 25 Mg Tab 25 Mg PO DAILY Atorvastatin (Atorvastatin Calcium) 40 Mg Tab 40 Mg PO HS Namenda (Memantine) 5 Mg Tab 5 Mg PO HS Finasteride 5 Mg Tab 5 Mg PO DAILY Do not crush. Allergies: Coded Allergies: No Known Allergies (Verified , 04/29/17) Active Ordered Medications Current Medications Medications (Trade) Dose Ordered Sig/Jonathon Route Start Time Stop Time Status Last Admin (NS Flush) 2 ml UNSCH PRN IV FLUSH 04/29/17 21:30 (NS Flush) 2 ml BID IV FLUSH 04/30/17 09:00 (Tylenol) 650 mg Q4H PRN PO 04/29/17 21:30 (Zofran Inj) 4 mg Q6H PRN IVP 04/29/17 21:30 (Narcan Inj) 0.4 mg UNSCH PRN IV 04/29/17 21:30 (Milk Of Magnesia Liq) 30 ml Q12H PRN PO 04/29/17 21:30 (Senokot) 17.2 mg Q12H PRN PO 04/29/17 21:30 (Dulcolax Supp) 10 mg DAILY PRN RECTAL 04/29/17 21:30 (Lactulose Liq) 30 ml DAILY PRN PO 04/29/17 21:30 Family History Per EMR: Patient has no family history Social History Per EM: Negative for tobacco, alcohol and drugs Physical Exam Vital Signs Vital Signs Date Time Temp Pulse Resp B/P Pulse Ox O2 Delivery O2 Flow Rate FiO2 04/29/17 22:46 98.1 76 18 100/56 100 04/29/17 21:13 86 18 109/61 99 Room Air 04/29/17 19:11 84 18 119/65 100 Room Air 04/29/17 18:24 84 16 130/72 100 Room Air 04/29/17 18:21 97.8 85 16 130/72 99 Physical Exam GENERAL: This is an elderly male in no apparent distress. SKIN: No rashes, ecchymoses or lesions. Cool and dry. HEAD: Atraumatic. Normocephalic. No temporal or scalp tenderness. EYES: Pupils equal round and reactive. Extraocular motions intact. No scleral icterus. No injection or drainage. ENT: Nose without bleeding, purulent drainage or septal hematoma. Throat without erythema, tonsillar hypertrophy or exudate. Uvula midline. Airway patent. NECK: Trachea midline. No JVD or lymphadenopathy. Supple, nontender, no meningeal signs. CARDIOVASCULAR: Regular rate and rhythm with 3/6 murmur noted, no gallops, or rubs. RESPIRATORY: Clear to auscultation. Breath sounds equal bilaterally. No wheezes , rales, or rhonchi. GASTROINTESTINAL: Abdomen soft, non-tender, nondistended. No hepato-splenomegaly , or palpable masses. No guarding. MUSCULOSKELETAL: Extremities without clubbing, cyanosis, or edema. No joint tenderness, effusion, or edema noted. No calf tenderness. NEUROLOGICAL: Awake and oriented x 2. Motor and sensory grossly within normal limits. Five out of 5 muscle strength in all muscle groups. Normal speech. Laboratory Laboratory Tests Test 04/29/17 18:55 White Blood Count 5.5 Red Blood Count 3.17 Hemoglobin 8.7 Hematocrit 26.0 Mean Corpuscular Volume 82.2 Mean Corpuscular Hemoglobin 27.5 Mean Corpuscular Hemoglobin 33.5 Concent Red Cell Distribution Width 15.2 Platelet Count 251 Mean Platelet Volume 8.1 Neutrophils (%) (Auto) 68.7 Lymphocytes (%) (Auto) 15.9 Monocytes (%) (Auto) 13.8 Eosinophils (%) (Auto) 1.2 Basophils (%) (Auto) 0.4 Neutrophils # (Auto) 3.8 Lymphocytes # (Auto) 0.9 Monocytes # (Auto) 0.8 Eosinophils # (Auto) 0.1 Basophils # (Auto) 0.0 CBC Comment DIFF FINAL Differential Comment Prothrombin Time 11.2 Prothromb Time International 1.0 Ratio Activated Partial 27.7 Thromboplast Time Sodium Level 138 Potassium Level 4.1 Chloride Level 102 Carbon Dioxide Level 30.5 Anion Gap 6 Blood Urea Nitrogen 24 Creatinine 2.70 Estimat Glomerular Filtration 27 Rate Random Glucose 101 Calcium Level 8.8 Phosphorus Level 2.5 Magnesium Level 2.0 Total Bilirubin 0.5 Aspartate Amino Transf 18 (AST/SGOT) Alanine Aminotransferase 19 (ALT/SGPT) Alkaline Phosphatase 83 Total Creatine Kinase 75 Troponin I LESS THAN 0.02 Total Protein 7.2 Albumin 3.2 Thyroid Stimulating Hormone 3.500 3rd Gen Result Diagram: 04/29/17185404/29/171854 Imaging Last Impressions Head CT 04/29/171852 Signed Impressions: Service Date/Time: Saturday, April 29, 2017 19:38 - CONCLUSION: Negative for acute process. Richie Sorensen MD FACR Chest X-Ray 04/29/171852 Signed Impressions: Service Date/Time: Saturday, April 29, 2017 18:52 - CONCLUSION: No acute disease. Richie Sorensen MD FACR Assessment and Plan Problem List: (1) Syncope ICD Code: R55 Status: Acute (2) ESRD (end stage renal disease) on dialysis ICD Code: N18.6 Status: Chronic Assessment and Plan 72 y/o male with a history of ESRD was brought to the ED by family after falling at home and being unresponsive for 2 Mins. Syncope, unknown etiology Head CT reviewed unremarkable -Monitor Tele, may need a Holter monitor -PT eval and treat -Orthostatic BP ESRD on HD, chronic, HD on M/W/F -Consult nephrology for recommendations DVT prophylaxis: SCDs This note was transcribed by baljeet Camara. I, Dr. Edmond Castro personally performed the history, physical exam, and medical decision making; and confirmed the accuracy of the information in the transcribed note. Authenticated by Dr. Edmond Castro on 04/30/17 at 02:11. Discussed Condition With Patient Sonia Camara Apr 30, 2017 01:09 Edmond Castro MD Apr 30, 2017 02:11
[2017-04-30 04:39] VITALS: BP_SYST 100; BP_SYST 109; BP_SYST 111; BP_DIAS 59; BP_DIAS 64; PULSE 81; RESP 18; TEMP 98.1; O2SAT 99
[2017-04-30 07:03] LABS: AUTOMATED NEUTROPHIL # 3.2 TH/MM3 (1.8-7.7); BASOPHIL % 0.4 % (0.0-2.0); EOSINOPHIL # 0.1 TH/MM3 (0-0.4); EOSINOPHIL % 1.3 % (0.0-4.0); HEMATOCRIT 27.5 % (39.0-51.0); HEMO FLAGS DIFF FINAL; LYMPH % 25.2 % (9.0-44.0); LYMPHOCYTE # 1.3 TH/MM3 (1.0-4.8); MEAN CELL VOLUME 83.7 FL (80.0-100.0); MEAN CORPUSCULAR HEMOGLOBIN 26.8 PG (27.0-34.0); MONO % 12.6 % (0.0-8.0); NEUT % 60.5 % (16.0-70.0); PLATELET COUNT 226 TH/MM3 (150-450); RED BLOOD COUNT 3.29 MIL/MM3 (4.50-5.90); RED CELL DISTRIBUTION WIDTH 16.1 % (11.6-17.2); WHITE BLOOD COUNT 5.3 TH/MM3 (4.0-11.0)
[2017-04-30 07:30] LABS: BICARBONATE 28.4 MEQ/L (21.0-32.0); POTASSIUM 4.2 MEQ/L (3.5-5.1)
[2017-04-30 08:04] VITALS: BP_SYST 101; BP_SYST 105; BP_SYST 107; BP_DIAS 53; BP_DIAS 57; BP_DIAS 58; PULSE 80; RESP 18; TEMP 98.5; O2SAT 100
--- NOTE | 2017-04-30 08:54 | HHI.PR ---
Subjective Remarks Follow up for syncope and dizziness. The patient is a poor historian and has trouble recalling the events leading up to his admission. He does remember feeling dizzy yesterday, then states he "must've passed out". He says his nephew found him on the floor. Currently the patient denies any medical complaints including no dizziness, lightheadedness, headache, chest pain, palpitations, or shortness of breath. His carrot buncher is Dr. Toribio and he goes to dialysis on MWF. Objective Vitals Vital Signs Date Time Temp Pulse Resp B/P Pulse Ox O2 Delivery O2 Flow Rate FiO2 04/30/17 08:04 98.5 80 18 105/57 100 107/58 101/53 04/30/17 04:39 98.1 81 18 111/64 99 109/59 100/59 04/29/17 22:46 98.1 76 18 100/56 100 04/29/17 21:13 86 18 109/61 99 Room Air 04/29/17 19:11 84 18 119/65 100 Room Air 04/29/17 18:24 84 16 130/72 100 Room Air 04/29/17 18:21 97.8 85 16 130/72 99 I/O 04/29/17 04/29/17 04/29/17 04/30/17 04/30/17 04/30/17 07:00 15:00 23:00 07:00 15:00 23:00 Output Total 1 ml Balance -1 ml Output Stool Total 1 ml # Voids 1 Result Diagram: 04/30/17 0600 04/30/17 0600 Imaging Last Impressions Head CT 04/29/171852 Signed Impressions: Service Date/Time: Saturday, April 29, 2017 19:38 - CONCLUSION: Negative for acute process. Richie Sorensen MD FACR Chest X-Ray 04/29/171852 Signed Impressions: Service Date/Time: Saturday, April 29, 2017 18:52 - CONCLUSION: No acute disease. Richie Sorensen MD FACR Objective Remarks GENERAL: Well-nourished, well-developed pleasant elderly male patient in [facility]. SKIN: Warm and dry. No rash. HEENT: Normocephalic. Atraumatic. Pupils equal and round. Mucous membranes pink and moist. NECK: Supple. Trachea midline. CARDIOVASCULAR: Regular rate and rhythm. S1, S2 noted. No murmur appreciated. RESPIRATORY: No accessory muscle use. Clear to auscultation. Breath sounds equal bilaterally. GASTROINTESTINAL: Abdomen soft, non-tender, nondistended. Normoactive bowel sounds x4. MUSCULOSKELETAL: No obvious deformities. Extremities without clubbing, cyanosis , or edema. NEUROLOGICAL: Awake and alert. No obvious cranial nerve deficits. Motor grossly within normal limits. 5/5 muscle strength in bilateral upper and lower extremities. Normal speech. PSYCHIATRIC: Appropriate mood and affect; insight and judgment limited. Medications and IVs Current Medications Medications (Trade) Dose Ordered Sig/Jonathon Route Start Time Stop Time Status Last Admin (NS Flush) 2 ml UNSCH PRN IV FLUSH 04/29/17 21:30 (NS Flush) 2 ml BID IV FLUSH 04/30/17 09:00 (Tylenol) 650 mg Q4H PRN PO 04/29/17 21:30 (Zofran Inj) 4 mg Q6H PRN IVP 04/29/17 21:30 (Narcan Inj) 0.4 mg UNSCH PRN IV 04/29/17 21:30 (Milk Of Magnesia Liq) 30 ml Q12H PRN PO 04/29/17 21:30 (Senokot) 17.2 mg Q12H PRN PO 04/29/17 21:30 (Dulcolax Supp) 10 mg DAILY PRN RECTAL 04/29/17 21:30 (Lactulose Liq) 30 ml DAILY PRN PO 04/29/17 21:30 A/P Problem List: (1) Syncope ICD Code: R55 Status: Acute (2) ESRD (end stage renal disease) on dialysis ICD Code: N18.6 Status: Chronic Assessment and Plan 72 y/o male with a history of ESRD was brought to the ED by family after falling at home and being unresponsive for 2 Mins. Syncope: unclear etiology, possibly secondary to patient receiving dialysis yesterday. Patient only complaint of intermittent dizziness/lightheadedness. Recently hospitalized 04/23-04/25 for syncope, evaluated with 2D echo EF 65-70%, moderate MR, mild TR, and aortic valve sclerosis with trace AR; Carotid U/S with mild plaque left carotid bulb without any significant stenosis. -Head CT images reviewed, unremarkable -Check Holter monitor -PT eval and treat -Orthostatic BP negative although patient does have borderline hypotension -since this is 2nd admission this month for syncope, will check brain MRI and consult neurology -case management consulted to eval for possible placement in [facility] vs SNF ESRD on HD, chronic, HD on M// -Consult nephrology Dr. Toribio DVT prophylaxis: SCDs Discharge Planning Discharge pending brain MRI, neuro consult, PT eval. Suspect patient may need placement in [facility] vs SNF, case management to assist with discharge planning. Problem Qualifiers (1) Syncope: Jayashree Casas PA-C Apr 30, 2017 8:54 am
[2017-04-30] MEDS: SODIUM CHLORIDE 0.9% FLUSH 10 ML FLUSH IV FLUSH SCH ×2 (09:00→20:28)
--- NOTE | 2017-04-30 11:13 | RADRPT ---
EXAM DATE/TIME: 04/30/2017 10:39 [facility] COMPARISON: No previous studies available for comparison. INDICATIONS : Syncope. MEDICAL HISTORY : Renal failure, chronic. Hypertension. SURGICAL HISTORY : Tonsillectomy. ENCOUNTER: Initial ACUITY: 1 day PAIN SCORE: 0/10 LOCATION: cranial TECHNIQUE: Multiplanar, multisequence MRI of the brain was performed without contrast. FINDINGS: CEREBRUM: There is diffuse atrophy present. The ventricles are normal for age. No evidence of midline shift, m ass lesion, hemorrhage or acute infarction. No extraaxial fluid collections are seen. The pituitary gland and suprasellar cistern are normal in configuration. WHITE MATTER: Mild chronic white matter changes.. POSTERIOR FOSSA: The cerebellum and brainstem are intact. The 4th ventricle is midline. The cerebellopontine angle is unremarkable. The cerebellar tonsils are normal in position. DIFFUSION IMAGING: No focal areas of restricted diffusion are seen. No evidence of acute infarction. EXTRACRANIAL: The visualized portions of the orbits and paranasal sinuses are unremarkable. CONCLUSION: No acute disease. Diffuse atrophy is present with chronic white matter changes without asymmetry or stroke. Wong Spence MD on April 30, 2017 at 11:10 Board Certified Radiologist. This report was verified electronically.
[2017-04-30 12:00] VITALS: BP 126/63; PULSE 86; RESP 18; TEMP 98.7; O2SAT 100
[2017-04-30 15:38] VITALS: BP 107/56; PULSE 78; RESP 17; TEMP 98.6; O2SAT 100
--- NOTE | 2017-04-30 16:24 | EKG ---
Date Performed: 04/29/2017 Time Performed: 19:20:17 PTAGE: 87 years EKG: Sinus rhythm BORDERLINE LEFT AXIS DEVIATION BORDERLINE ECG Compared to the PREVIOUS TRACING from 04/23/17, no significant change DOCTOR: Faraz Crain Interpretating Date/Time 04/30/2017 16:24:20
--- NOTE | 2017-04-30 16:55 | HHI.PR ---
Subjective Remarks Patient admitted under observation status. As a history of end-stage renal disease with dialysis Tuesday and Tuesday. Also history of hypertension. Apparently syncopal episode occurred. BP 107/56. Pulse 70 and regular. Respiratory rate 14. Patient is a very poor historian. Very poor memory related to ongoing dementia. Not in respiratory distress. Lungs clear. Heart S1 2 regular. Abdomen soft nontender. No peripheral edema noted. AV fistula appears of a good bruit and thrill. No evidence of infection. Assessment and plan: 1. End-stage renal disease. Dialysis session Tuesday. Volume status and lites. We stable. 2. History of syncopal episode. Etiology unclear but if the patient was taking Flomax as an outpatient would discontinue same as it can be associated with orthostasis. We'll defer further evaluation to primary care physician. 3. Anemia. Will check iron saturation and ferritin as well as stool for occult blood. Continue Epogen for anemia renal disease. 4. Progressive dementia. The patient is still living alone recommend case management consult. I believe patient may benefit from placement in an [facility] or other facility for closer observation and support. Patient currently on observation status and inpatient nephrology services will not be covered. If patient still in the hospital Tuesday would recommend reevaluation with conversion to full admit status if appropriate at which time consultation and dialysis can be provided. Objective Vital Signs Date Time Temp Pulse Resp B/P Pulse Ox O2 Delivery O2 Flow Rate FiO2 04/30/17 15:38 98.6 78 17 107/56 100 04/30/17 12:00 98.7 86 18 126/63 100 04/30/17 08:04 98.5 80 18 105/57 100 107/58 101/53 04/30/17 04:39 98.1 81 18 111/64 99 109/59 100/59 04/29/17 22:46 98.1 76 18 100/56 100 04/29/17 21:13 86 18 109/61 99 Room Air 04/29/17 19:11 84 18 119/65 100 Room Air 04/29/17 18:24 84 16 130/72 100 Room Air 04/29/17 18:21 97.8 85 16 130/72 99 I/O 04/29/17 04/29/17 04/29/17 04/30/17 04/30/17 04/30/17 07:00 15:00 23:00 07:00 15:00 23:00 Output Total 1 ml Balance -1 ml Output Stool Total 1 ml # Voids 1 Result Diagram: 04/30/1759904/30/17599 Robert Toribio MD Apr 30, 2017 16:54
--- NOTE | 2017-04-30 18:21 | MB ---
cc: ALEJANDRO HERNANDEZ DATE OF CONSULTATION 04/30/17 REASON FOR CONSULTATION Syncope HISTORY OF PRESENT ILLNESS Mr. Valentin is a very nice 87-year-old man who yesterday had an episode where he got up from a seated position, felt lightheaded and then passed out. He had no tonic-clonic activity. He was out for one or two minutes. His family member saw him and noted no seizure-like activity. He had some mild lightheadedness prior. He denied chest pain or palpitations. When he came to, he was back to normal. No history of seizure in the past. He recently underwent evaluation with a negative carotid ultrasound earlier this month, 2-D echo EF of 65-70%. Aortic valve stenosis, moderate mitral regurgitation. He was admitted recently for a syncopal episode as well. PAST MEDICAL HISTORY 1. End-stage renal disease remote for which he receives dialysis 2. Hyperlipidemia, 3. Hypertension, 4. Right upper extremity AV fistula. MEDICATIONS At home, 1. Gabapentin 100 mg q.h.s. 2. Vitamin B complex 3. Iron sulfate 4. Losartan 5. Atorvastatin 6. Namenda. 7. Finasteride. ALLERGIES None known. NEUROLOGIC EXAMINATION Vital signs: Blood pressure supine 105/57, standing 101/53, pulse 80, respiratory rate is 18, temperature 98 degrees. Higher cortical functions are normal. Cranial nerves intact. Motor exam 5/5 strength of all groups. There is no drift. Reflexes are symmetric. IMAGING STUDIES MRI brain normal. No acute changes, atrophy consistent with age. LABORATORY DATA His white count is 5300. Hemoglobin 8.8, hematocrit 27%, platelet count 226,000. Sodium is 140, potassium 4.2, chloride 103, CO2 is 28. The BUN is 32, creatinine 3.4. IMPRESSION Syncope, doubt seizure or stroke or transient ischemic attack, possible orthostatic hypotension. No additional neurologic workup is needed at this time. If he has recurrent episodes, consider cardiology evaluation. MD KELSIE Mckeon/ /5:27 PM /6:14 PM
[2017-04-30 19:48] VITALS: BP 109/54; PULSE 88; RESP 18; TEMP 98.3; O2SAT 100
[2017-04-30 23:27] VITALS: PULSE 87
[2017-05-01 00:52] VITALS: BP_SYST 100; BP_SYST 111; BP_DIAS 58; BP_DIAS 64; PULSE 76; RESP 19; TEMP 98.5; O2SAT 100
[2017-05-01 04:18] VITALS: BP 112/59; PULSE 74; RESP 16; TEMP 98.4; O2SAT 100
[2017-05-01 05:21] LABS: HEMATOCRIT 28.9 % (39.0-51.0); MEAN CELL VOLUME 84.4 FL (80.0-100.0); MEAN CORPUSCULAR HEMOGLOBIN 27.4 PG (27.0-34.0); MEAN CORPUSCULAR HGB CONC 32.4 % (32.0-36.0); PLATELET COUNT 235 TH/MM3 (150-450); RED BLOOD COUNT 3.42 MIL/MM3 (4.50-5.90); RED CELL DISTRIBUTION WIDTH 15.8 % (11.6-17.2); REVIEW FLAG FINAL; WHITE BLOOD COUNT 5.4 TH/MM3 (4.0-11.0)
[2017-05-01 05:31] LABS: TRANSFERRIN IRON PROFILE 133 MG/DL (200-360)
[2017-05-01 05:34] LABS: FERRITIN 1237 NG/ML (26-388)
[2017-05-01 08:14] VITALS: BP_SYST 114; BP_SYST 119; BP_SYST 126; BP_DIAS 63; BP_DIAS 67; PULSE 77; RESP 16; TEMP 97.3; O2SAT 100
--- NOTE | 2017-05-01 08:58 | HHI.PR ---
Subjective Remarks Follow up for syncope and dizziness. The patient reports feeling back to normal. He denies any further episodes of dizziness, lightheadedness, or syncope. He did get up from bed yesterday and says he felt well, no symptoms. He wants to go home. Discussed concern for his safety at home and Dr. Toribio's recommendation for [facility]. The patient says right now he has his nephew staying with him and is getting set up for meals on wheels this week. He also states he takes a [facility] on MWF to and from dialysis. Objective Vitals Vital Signs Date Time Temp Pulse Resp B/P Pulse Ox O2 Delivery O2 Flow Rate FiO2 05/01/17 08:14 97.3 77 16 119/67 100 126/63 114/63 05/01/17 04:18 98.4 74 16 112/59 100 05/01/17 00:52 98.5 76 19 100/58 100 105/66 111/64 04/30/17 23:27 87 04/30/17 19:48 98.3 88 18 109/54 100 04/30/17 15:38 98.6 78 17 107/56 100 04/30/17 12:00 98.7 86 18 126/63 100 I/O 04/30/17 04/30/17 04/30/17 05/01/17 05/01/17 05/01/17 07:00 15:00 23:00 07:00 15:00 23:00 Output Total 1 ml Balance -1 ml Output Stool Total 1 ml # Voids 1 Result Diagram: 05/01/17 0445 04/30/17 0600 Imaging Last Impressions Brain MRI 04/30/17 0000 Signed Impressions: Service Date/Time: Sunday, April 30, 2017 10:39 - CONCLUSION: No acute disease. Diffuse atrophy is present with chronic white matter changes without asymmetry or stroke. Wong Spence MD Head CT 04/29/171852 Signed Impressions: Service Date/Time: Saturday, April 29, 2017 19:38 - CONCLUSION: Negative for acute process. Richie Sorensen MD FACR Chest X-Ray 04/29/171852 Signed Impressions: Service Date/Time: Saturday, April 29, 2017 18:52 - CONCLUSION: No acute disease. Richie Sornesen MD FACR Objective Remarks GENERAL: Well-nourished, well-developed pleasant elderly male patient in NAD. SKIN: Warm and dry. No rash. HEENT: Normocephalic. Atraumatic. Pupils equal and round. Mucous membranes pink and moist. NECK: Supple. Trachea midline. CARDIOVASCULAR: Regular rate and rhythm. S1, S2 noted. No murmur appreciated. RESPIRATORY: No accessory muscle use. Clear to auscultation. Breath sounds equal bilaterally. GASTROINTESTINAL: Abdomen soft, non-tender, nondistended. Normoactive bowel sounds x4. MUSCULOSKELETAL: No obvious deformities. Extremities without clubbing, cyanosis , or edema. NEUROLOGICAL: Awake and alert. No obvious cranial nerve deficits. Motor grossly within normal limits. 5/5 muscle strength in bilateral upper and lower extremities. Normal speech. PSYCHIATRIC: Appropriate mood and affect; insight and judgment limited. Medications and IVs Current Medications Medications (Trade) Dose Ordered Sig/Jonathon Route Start Time Stop Time Status Last Admin (NS Flush) 2 ml UNSCH PRN IV FLUSH 04/29/17 21:30 (NS Flush) 2 ml BID IV FLUSH 04/30/17 09:00 04/30/17 20:28 (Tylenol) 650 mg Q4H PRN PO 04/29/17 21:30 (Zofran Inj) 4 mg Q6H PRN IVP 04/29/17 21:30 (Narcan Inj) 0.4 mg UNSCH PRN IV 04/29/17 21:30 (Milk Of Magnesia Liq) 30 ml Q12H PRN PO 04/29/17 21:30 (Senokot) 17.2 mg Q12H PRN PO 04/29/17 21:30 (Dulcolax Supp) 10 mg DAILY PRN RECTAL 04/29/17 21:30 (Lactulose Liq) 30 ml DAILY PRN PO 04/29/17 21:30 A/P Problem List: (1) Syncope ICD Code: R55 Status: Acute (2) ESRD (end stage renal disease) on dialysis ICD Code: N18.6 Status: Chronic Assessment and Plan 72 y/o male with a history of ESRD was brought to the ED by family after falling at home and being unresponsive for 2 Mins. Syncope: unclear etiology, possibly secondary to patient receiving dialysis yesterday. Patient only complaint of intermittent dizziness/lightheadedness. Recently hospitalized 04/23-04/25 for syncope, evaluated with 2D echo EF 65-70%, moderate MR, mild TR, and aortic valve sclerosis with trace AR; Carotid U/S with mild plaque left carotid bulb without any significant stenosis. -Head CT images reviewed, unremarkable -Holter monitor pending -PT eval and treat, recommends HHC -Orthostatic BP negative although patient does have borderline hypotension, discontinued patient's flomax and losartan -since this is 2nd admission this month for syncope, ordered brain MRI and consult neurology -Brain MRI images reviewed, no acute findings, shows diffuse atrophy -neurology consulted, no further work up needed -case management consulted to eval for possible placement in [facility] vs SNF; however discussed with CM, unlikely patient will be able to go to [facility] and definitely does not qualify for SNF, will likely need to go home with HHC Hypertension: patient's BP has been borderline hypotensive throughout admission despite holding losartan, hypotension likely contributing to syncope episodes as above -discontinue losartan -monitor BP ESRD on HD, chronic, HD on // -Consult nephrology Dr. Toribio DVT prophylaxis: SCDs Discharge Planning Case management assisting with discharge planning. Had long discussion with patient and case management. The patient reports he wants to go home and is agreeable to HHC. His nephew will be staying with him for at least a week and he is in the process of getting set up for meals on wheels. It was explained to the patient that Dr. Toribio recommends [facility] however patient still adamantly states he wants to go home. Discussed with Belem Tavera cyanide case hardener, patient does not qualify for SNF and unless patient/family is willing to pay for [facility], will be unlikely to get him placed. From a medical standpoint, the patient is clear for discharge. PT recommends HHC. Will arrange HHC for now unless case management can arrange [facility]. Discharge patient to home with HHC Condition on discharge: Improved Renal Diet as tolerated Ad Anusha activity Rx written: no new meds Follow-up with primary care physician and nephrology Problem Qualifiers (1) Syncope: Jayashree Casas PA-C May 01, 2017 8:58 am
--- NOTE | 2017-05-01 08:59 | HHI.FF ---
Face to Face Verification Diagnosis: (1) Syncope (2) ESRD (end stage renal disease) on dialysis (3) Dementia (4) HTN (hypertension) Physical Therapy Order: Evaluate and Treat, Improve ambulation, Strength and gait training Occupational Therapy Order: Evaluate and Treat, Improve ADL Home Health Nursing Order: Medical education Signs/symptoms of disease process Nursing assessment with vital signs Home Health Aide Order: To Assist In: enterprise resource planning consultant and meal prep Dispatcher Chief [employer] Order: To Evaluate: Living conditions/environment, Support services Order: To Provide: Long range planning, Community services I have seen patient Medhat Valentin on 05/01/17. My clinical findings support the need for the requested home health care services because: Deconditioned w/ increased weakness Med compliance is questionable Limited ability to care for self Need for psychosocial assistance Impaired cognition/judgement I certify that my clinical findings support that this patient is homebound because: Impaired cognitive ability/safety Unsafe to leave home unassisted Jayashree Casas PA-C May 01, 2017 8:59 am
[2017-05-01] MEDS: SODIUM CHLORIDE 0.9% FLUSH 10 ML FLUSH IV FLUSH SCH (09:02)
== END 2017-05-01 11:44 | disposition home or self-care (01) ==
LOC: NEPC 17:57 → NEDA 21:16 → NEPFCDU 22:19
PROVIDERS: ADMIT Family Medicine; ATTEND Family Medicine
DX: R55 Syncope and collapse (principal); R42 Dizziness and giddiness; R51 Headache; R41.82 Altered mental status, unspecified; I95.9 Hypotension, unspecified; R07.9 Chest pain, unspecified; I12.0 Hypertensive chronic kidney disease with stage 5 chronic kidney disease or end stage renal disease; N18.6 End stage renal disease; D63.1 Anemia in chronic kidney disease; I08.0 Rheumatic disorders of both mitral and aortic valves; E78.5 Hyperlipidemia, unspecified; E78.00 Pure hypercholesterolemia, unspecified; F03.90 Unspecified dementia, unspecified severity, without behavioral disturbance, psychotic disturbance, mood disturbance, and anxiety; Z99.2 Dependence on renal dialysis; Z79.899 Other long term (current) drug therapy; W19.XXXA Unspecified fall, initial encounter; Y92.009 Unspecified place in unspecified non-institutional (private) residence as the place of occurrence of the external cause
CPT/HCPCS: 70450; 70551; 71010; 80048; 80053; 82550; 82728; 83540; 83550; 83735; 84100; 84443; 84484; 85025; 85027; 85610; 85730; 93005; 97163; 99285; G0378; G8987; G8988

== ENCOUNTER 2017-05-04 14:46 | Emergency (ER) | payer MEDICARE, OTHER ==
[~2017-05-04] VITALS: Ht 170.2 cm; Wt 72.0 kg
[~2017-05-04 14:46] MED LIST changes: -ATOR1TAB18 PO; +ATOR40TA16 PO; -COLC1CAP3 PO; +FERR324T4 PO; +GABA100C4 PO; -MIRA25TA PO; +VITATAB11 PO; -WALKER WHEELS/F1 MIS
[2017-05-04 15:02] VITALS: BP 105/61; PULSE 82; RESP 18; TEMP 97.7; O2SAT 98
[2017-05-04 15:06] VITALS: BP 105/61; PULSE 82; RESP 18; TEMP 97.7; O2SAT 100
[2017-05-04] MEDS ORDERED: SODIUM CHLORIDE 0.9% FLUSH 10 ML FLUSH IVF PRN (15:15)
[2017-05-04 15:46] VITALS: BP 105/61; PULSE 80; RESP 19; O2SAT 99
[2017-05-04 15:49] LABS: AUTOMATED NEUTROPHIL # 2.6 TH/MM3 (1.8-7.7); BASOPHIL % 0.3 % (0.0-2.0); EOSINOPHIL # 0.1 TH/MM3 (0-0.4); EOSINOPHIL % 1.4 % (0.0-4.0); HEMATOCRIT 26.8 % (39.0-51.0); HEMO FLAGS DIFF FINAL; LYMPH % 21.9 % (9.0-44.0); MEAN CELL VOLUME 82.4 FL (80.0-100.0); MEAN CORPUSCULAR HEMOGLOBIN 27.1 PG (27.0-34.0); MEAN CORPUSCULAR HGB CONC 32.9 % (32.0-36.0); NEUT % 60.4 % (16.0-70.0); PLATELET COUNT 244 TH/MM3 (150-450); RED BLOOD COUNT 3.26 MIL/MM3 (4.50-5.90); RED CELL DISTRIBUTION WIDTH 15.5 % (11.6-17.2); WHITE BLOOD COUNT 4.4 TH/MM3 (4.0-11.0)
[2017-05-04 16:06] LABS: PROTHROMBIN TIME - PATIENT 11.2 SEC (9.8-11.6)
[2017-05-04 16:08] LABS: ALT (GPT) 17 U/L (12-78); ANION GAP 6 MEQ/L (5-15); AST (GOT) 15 U/L (15-37); BICARBONATE 31.4 MEQ/L (21.0-32.0); BLOOD UREA NITROGEN 17 MG/DL (7-18); CHLORIDE 104 MEQ/L (98-107); GLOMERULAR FILTRATION RATE 32 ML/MIN (>89); POTASSIUM 3.7 MEQ/L (3.5-5.1); SODIUM (NA) 141 MEQ/L (136-145)
[2017-05-04 16:12] LABS: ALKALINE PHOSPHATASE 84 U/L (45-117); TOTAL BILIRUBIN ADULT 0.5 MG/DL (0.2-1.0)
--- NOTE | 2017-05-04 16:17 | EKG ---
Date Performed: 05/04/2017 Time Performed: 15:39:38 PTAGE: 87 years EKG: Sinus rhythm BORDERLINE LEFT AXIS DEVIATION BORDERLINE ECG PREVIOUS TRACING : 04/29/2017 19.20 No significant change from previous tracing noted. DOCTOR: Yahir Moran Interpretating Date/Time 05/04/2017 16:17:16
[2017-05-04 16:37] LABS: CREATINE KINASE 79 U/L (39-308)
--- NOTE | 2017-05-04 16:44 | PD ---
HPI Chief Complaint: Syncope/Near-Syncope Time Seen by Provider: 15:00 Travel History International Travel<30 days: No Contact w/Intl Traveler<30days: No Traveled to known affect area: No History of Present Illness HPI Patient is an 87-year-old male presenting to the emergency department for evaluation of a syncopal episode today after dialysis. Apparently patient was in the waiting room after dialysis waiting for his ride when he appeared to have dozed off for approximately 1 minute. Patient did not fall, he was not slumped over, there was no injury. Patient does report feeling tired after dialysis, this is a normal feeling for him to have after he has been dialyzed. He denies any chest pain, shortness of breath, fever, chills, nausea, vomiting. PFSH Past Medical History Anemia: Yes Arthritis: No Asthma: No Anxiety: No Heart Rhythm Problems: No Cancer: No Cardiovascular Problems: No High Cholesterol: Yes Chest Pain: No Congestive Heart Failure: No COPD: No Cerebrovascular Accident: No Diabetes: No Dialysis: Yes Gastrointestinal Disorders: No GERD: No Headaches: No Hepatitis: No Hiatal Hernia: No Hypertension: Yes Implanted Vascular Access Dvce: Yes (fistula right upper arm ) Kidney Stones: No Musculoskeletal: No Neurologic: No Psychiatric: No Reproductive: No Respiratory: No Migraines: No Renal Failure: Yes Seizures: No Sleep Apnea: No Thyroid Disease: No Ulcer: No PNEUMOCCOCAL Vaccine (Year): 1 ?: Not Past Surgical History Abdominal Surgery: No AICD: No Arteriovenous Shunt: No Cardiac Surgery: No Ear Surgery: No Endocrine Surgery: No Eye Surgery: No Genitourinary Surgery: No Gynecologic Surgery: No Insulin Pump: No Oral Surgery: Yes (t and a) Pacemaker: No Thoracic Surgery: Yes Tonsillectomy: Yes (T&A) Other Surgery: Yes (R. A/V FISTULA) Social History Alcohol Use: No Tobacco Use: No Substance Use: No Allergies-Medications (Allergen,Severity, Reaction): Coded Allergies: No Known Allergies (Verified , 04/29/17) Reported Meds & Prescriptions Reported Meds & Active Scripts Active Reported Gabapentin 100 Mg Cap 200 Mg PO HS Vitamin B Complex (B-Complex Vitamins) 1 Tab 1 Tab PO DAILY Ferrous Sulfate DR (Ferrous Sulfate) 324 Mg Tabdr 324 Mg PO DAILY Atorvastatin (Atorvastatin Calcium) 40 Mg Tab 40 Mg PO HS Namenda (Memantine) 5 Mg Tab 5 Mg PO HS Finasteride 5 Mg Tab 5 Mg PO DAILY Do not crush. Review of Systems Except as stated in HPI: all other systems reviewed are Neg Physical Exam Narrative GENERAL: Thin, well-developed, alert male. Resting comfortably in no acute distress. SKIN: Warm and dry. HEAD: Atraumatic. Normocephalic. EYES: Pupils equal and round. No scleral icterus. No injection or drainage. ENT: No nasal bleeding or discharge. Mucous membranes pink and moist. NECK: Trachea midline. No JVD. CARDIOVASCULAR: Regular rate and rhythm. 2/6 systolic murmur RESPIRATORY: No accessory muscle use. Clear to auscultation. Breath sounds equal bilaterally. GASTROINTESTINAL: Abdomen soft, non-tender, nondistended. Hepatic and splenic margins not palpable. MUSCULOSKELETAL: Extremities without clubbing, cyanosis, or edema. No obvious deformities. NEUROLOGICAL: Awake and alert. No obvious cranial nerve deficits. Motor grossly within normal limits. Five out of 5 muscle strength in the arms and legs. Normal speech. PSYCHIATRIC: Appropriate mood and affect; insight and judgment normal. Data Data Last Documented VS Vital Signs Date Time Temp Pulse Resp B/P Pulse Ox O2 Delivery O2 Flow Rate FiO2 05/04/17 15:46 81 18 99 05/04/17 15:46 105/61 05/04/17 15:06 97.7 Room Air Orders Electrocardiogram (05/04/17 15:13) Complete Blood Count With Diff (05/04/17 15:13) Comprehensive Metabolic Panel (05/04/17 15:13) Magnesium (Mg) (05/04/17 15:13) Ckmb (Isoenzyme) Profile (05/04/17 15:13) Troponin I (05/04/17 15:13) Act Partial Throm Time (Ptt) (05/04/17 15:13) Prothrombin Time / Inr (Pt) (05/04/17 15:13) Ecg Monitoring (05/04/17 15:13) Iv Access Insert/Monitor (05/04/17 15:13) Oximetry (05/04/17 15:13) Sodium Chloride 0.9% Flush (Ns Flush) (05/04/17 15:15) Labs Laboratory Tests Test 05/04/17 15:15 White Blood Count 4.4 TH/MM3 Red Blood Count 3.26 MIL/MM3 Hemoglobin 8.8 GM/DL Hematocrit 26.8 % Mean Corpuscular Volume 82.4 FL Mean Corpuscular Hemoglobin 27.1 PG Mean Corpuscular Hemoglobin 32.9 % Concent Red Cell Distribution Width 15.5 % Platelet Count 244 TH/MM3 Mean Platelet Volume 7.4 FL Neutrophils (%) (Auto) 60.4 % Lymphocytes (%) (Auto) 21.9 % Monocytes (%) (Auto) 16.0 % Eosinophils (%) (Auto) 1.4 % Basophils (%) (Auto) 0.3 % Neutrophils # (Auto) 2.6 TH/MM3 Lymphocytes # (Auto) 1.0 TH/MM3 Monocytes # (Auto) 0.7 TH/MM3 Eosinophils # (Auto) 0.1 TH/MM3 Basophils # (Auto) 0.0 TH/MM3 CBC Comment DIFF FINAL Differential Comment Prothrombin Time 11.2 SEC Prothromb Time International 1.0 RATIO Ratio Activated Partial 25.0 SEC Thromboplast Time Sodium Level 141 MEQ/L Potassium Level 3.7 MEQ/L Chloride Level 104 MEQ/L Carbon Dioxide Level 31.4 MEQ/L Anion Gap 6 MEQ/L Blood Urea Nitrogen 17 MG/DL Creatinine 2.33 MG/DL Estimat Glomerular Filtration 32 ML/MIN Rate Random Glucose 103 MG/DL Calcium Level 8.9 MG/DL Magnesium Level 2.0 MG/DL Total Bilirubin 0.5 MG/DL Aspartate Amino Transf 15 U/L (AST/SGOT) Alanine Aminotransferase 17 U/L (ALT/SGPT) Alkaline Phosphatase 84 U/L Total Creatine Kinase 79 U/L Troponin I LESS THAN 0.02 NG/ML Total Protein 7.4 GM/DL Albumin 3.4 GM/DL MDM Medical Decision Making Medical Screen Exam Complete: Yes Emergency Medical Condition: Yes Interpretation(s) Vital Signs Date Time Temp Pulse Resp B/P Pulse Ox O2 Delivery O2 Flow Rate FiO2 05/04/17 15:46 81 18 99 05/04/17 15:46 80 19 105/61 99 05/04/17 15:06 97.7 82 18 105/61 100 Room Air 05/04/17 15:06 82 18 98 Room Air 05/04/17 15:02 97.7 82 18 105/61 98 Differential Diagnosis Syncope versus sleeping versus electrolyte abnormality versus cardiac arrhythmia versus other Narrative Course Patient is a 87-year-old male that was sent to the emergency department after having an episode where he appeared to be sleeping in the waiting room after dialysis. Patient denied any physical complaints prior to or now. His vital signs are stable, labs are ordered and pending. EKG shows sinus rhythm with a rate of 78. CBC with a hemoglobin of 8.8 and 26.8 which is stable when compared to prior Chemistry with no acute findings identified Patient is alert, he has baseline dementia but there is no neurological deficits noted on exam at this time. Case management bedside discussing plan of care with patient and his son. Discussed with Dr. Toribio that family states that patient has had these episodes after dialysis for the last week. Dr. Toribio advised that patient should not be taking Tamsulosin, this was reiterated to the family. Dr. Toribio stated that his assistant case manager was also working on placement for patient Case management discussed placement options with son, he was given a list of nursing homes to tour. Patient and son verbalized understanding of discharge instructions. Patient is to follow-up with his primary doctor return to emergency department for any new or worsening symptoms. Patient stable for discharge. Diagnosis Primary Impression: Light-headedness Referrals: Robert Toribio MD 2 days Primary Care Physician 2 days Patient Instructions: General Instructions, Lightheadedness (ED) Additional Instructions: Stop taking tamsulosin which is also called Flomax Change positions slowly Eating regular meals Follow-up with your primary doctor Return to emergency department for any new or worsening symptoms Med/Other Pt SpecificInfo: No Change to Meds Disposition: 01 DISCHARGE HOME Condition: Stable Marie Serrato May 04, 2017 16:44
[2017-05-04 17:44] VITALS: BP 99/56; PULSE 91; RESP 20; O2SAT 100
[2017-05-04 18:09] VITALS: BP 110/61
== END 2017-05-04 18:10 | disposition home or self-care (01) ==
LOC: NEPE 14:46
DX: R42 Dizziness and giddiness (principal); D64.9 Anemia, unspecified; E78.00 Pure hypercholesterolemia, unspecified; I10 Essential (primary) hypertension; Z79.899 Other long term (current) drug therapy
CPT/HCPCS: 80053; 82550; 83735; 84484; 85025; 85610; 85730; 93005

== ENCOUNTER 2017-06-28 09:09 | Emergency (ER) | payer MEDICARE, OTHER ==
[~2017-06-28] VITALS: Ht 170.2 cm; Wt 54.0 kg
[2017-06-28 09:17] VITALS: BP 107/63; PULSE 83; RESP 18; TEMP 98; O2SAT 100
[2017-06-28 09:45] VITALS: BP 109/60; PULSE 77; RESP 14; O2SAT 100
[2017-06-28] MEDS ORDERED: SODIUM CHLORIDE 0.9% FLUSH 10 ML FLUSH IV FLUSH PRN (09:45)
--- NOTE | 2017-06-28 10:00 | PD ---
HPI Chief Complaint: Medical Clearance Time Seen by Provider: 09:58 Travel History International Travel<30 days: No Contact w/Intl Traveler<30days: No Traveled to known affect area: No History of Present Illness HPI 87-year-old male patient with history of end-stage renal disease on dialysis, presents to the ER today because he states that he had poor appetite this morning. He had a normal bowel movement today, denies any nausea, vomiting, fevers, diarrhea, or any other symptoms. He states that he has been on dialysis since December and had dialysis yesterday. He states his appetite has been normal up until today. Modifying Factors: None Associated Signs & Symptoms: Poor appetite Risk Factors: End-stage renal dialysis PFSH Past Medical History Anemia: Yes Arthritis: No Asthma: No Anxiety: No Heart Rhythm Problems: No Cancer: No Cardiovascular Problems: No High Cholesterol: Yes Chest Pain: No Congestive Heart Failure: No COPD: No Cerebrovascular Accident: No Diabetes: No Dialysis: Yes Gastrointestinal Disorders: No GERD: No Headaches: No Hepatitis: No Hiatal Hernia: No Hypertension: Yes Implanted Vascular Access Dvce: Yes (fistula right upper arm ) Kidney Stones: No Musculoskeletal: No Neurologic: No Psychiatric: No Reproductive: No Respiratory: No Migraines: No Renal Failure: Yes Seizures: No Sleep Apnea: No Thyroid Disease: No Ulcer: No PNEUMOCCOCAL Vaccine (Year): 1 Past Surgical History Abdominal Surgery: No AICD: No Arteriovenous Shunt: No Cardiac Surgery: No Ear Surgery: No Endocrine Surgery: No Eye Surgery: No Genitourinary Surgery: No Gynecologic Surgery: No Insulin Pump: No Oral Surgery: Yes (t and a) Pacemaker: No Thoracic Surgery: Yes Tonsillectomy: Yes (T&A) Other Surgery: Yes (R. A/V FISTULA) Social History Alcohol Use: No Tobacco Use: No Substance Use: No Allergies-Medications (Allergen,Severity, Reaction): Coded Allergies: No Known Allergies (Verified , 06/28/17) Reported Meds & Prescriptions Reported Meds & Active Scripts Active Reported Gabapentin 100 Mg Cap 200 Mg PO HS Vitamin B Complex (B-Complex Vitamins) 1 Tab 1 Tab PO DAILY Ferrous Sulfate DR (Ferrous Sulfate) 324 Mg Tabdr 324 Mg PO DAILY Atorvastatin (Atorvastatin Calcium) 40 Mg Tab 40 Mg PO HS Namenda (Memantine) 5 Mg Tab 5 Mg PO HS Finasteride 5 Mg Tab 5 Mg PO DAILY Do not crush. Review of Systems Except as stated in HPI: all other systems reviewed are Neg Physical Exam Narrative GENERAL: Well-developed pleasant elderly -[place]ames[place] male patient currently in no acute distress. Awake and oriented 3. SKIN: Focused skin assessment warm/dry. HEAD: Atraumatic. Normocephalic. EYES: Pupils equal and round. No scleral icterus. No injection or drainage. ENT: No nasal bleeding or discharge. Mucous membranes pink and moist. NECK: Trachea midline. No JVD. CARDIOVASCULAR: Regular rate and rhythm. No murmur appreciated. RESPIRATORY: No accessory muscle use. Clear to auscultation. Breath sounds equal bilaterally. GASTROINTESTINAL: Abdomen soft, non-tender, nondistended. Hepatic and splenic margins not palpable. MUSCULOSKELETAL: No obvious deformities. No clubbing. No cyanosis. No edema. NEUROLOGICAL: Awake and alert. No obvious cranial nerve deficits. Motor grossly within normal limits. Normal speech. PSYCHIATRIC: Appropriate mood and affect; insight and judgment normal. Data Data Last Documented VS Vital Signs Date Time Temp Pulse Resp B/P (MAP) Pulse Ox O2 Delivery O2 Flow Rate FiO2 06/28/17 09:45 77 14 109/60 (76) 100 Room Air 06/28/17 09:17 98.0 Orders Orders Complete Blood Count With Diff (06/28/17 09:34) Comprehensive Metabolic Panel (06/28/17 09:34) Lipase (06/28/17 09:34) Iv Access Insert/Monitor (06/28/17 09:34) Ecg Monitoring (06/28/17 09:34) Oximetry (06/28/17 09:34) Sodium Chloride 0.9% Flush (Ns Flush) (06/28/17 09:45) Chest, Single Ap (06/28/17 09:58) Abdomen, Flat & Upright (06/28/17 09:58) Labs Laboratory Tests Test 06/28/17 09:45 White Blood Count 6.4 TH/MM3 Red Blood Count 3.99 MIL/MM3 Hemoglobin 11.5 GM/DL Hematocrit 34.3 % Mean Corpuscular Volume 85.9 FL Mean Corpuscular Hemoglobin 28.9 PG Mean Corpuscular Hemoglobin Concent 33.6 % Red Cell Distribution Width 16.9 % Platelet Count 207 TH/MM3 Mean Platelet Volume 7.9 FL Neutrophils (%) (Auto) 65.0 % Lymphocytes (%) (Auto) 20.6 % Monocytes (%) (Auto) 13.3 % Eosinophils (%) (Auto) 0.9 % Basophils (%) (Auto) 0.2 % Neutrophils # (Auto) 4.2 TH/MM3 Lymphocytes # (Auto) 1.3 TH/MM3 Monocytes # (Auto) 0.9 TH/MM3 Eosinophils # (Auto) 0.1 TH/MM3 Basophils # (Auto) 0.0 TH/MM3 CBC Comment DIFF FINAL Differential Comment Blood Urea Nitrogen 29 MG/DL Creatinine 4.12 MG/DL Random Glucose 93 MG/DL Total Protein 8.4 GM/DL Albumin 4.0 GM/DL Calcium Level 9.3 MG/DL Alkaline Phosphatase 107 U/L Aspartate Amino Transf (AST/SGOT) 19 U/L Alanine Aminotransferase (ALT/SGPT) 21 U/L Total Bilirubin 0.5 MG/DL Sodium Level 139 MEQ/L Potassium Level 4.8 MEQ/L Chloride Level 104 MEQ/L Carbon Dioxide Level 29.0 MEQ/L Anion Gap 6 MEQ/L Estimat Glomerular Filtration Rate 17 ML/MIN Lipase 251 U/L [facility] Medical Decision Making Medical Screen Exam Complete: Yes Emergency Medical Condition: Yes Medical Record Reviewed: Yes Interpretation(s) Laboratory Tests Test 06/28/17 09:45 Red Blood Count 3.99 MIL/MM3 (4.50-5.90) Hemoglobin 11.5 GM/DL (13.0-17.0) Hematocrit 34.3 % (39.0-51.0) Monocytes (%) (Auto) 13.3 % (0.0-8.0) Blood Urea Nitrogen 29 MG/DL (7-18) Creatinine 4.12 MG/DL (0.60-1.30) Total Protein 8.4 GM/DL (6.4-8.2) Estimat Glomerular Filtration Rate 17 ML/MIN (>89) Differential Diagnosis Poor appetite: Gastroenteritis versus obstruction versus dehydration versus metabolic issues Narrative Course Abdomen fairly benign. Lab work did not show any significant metabolic issues. His BUN/creatinine is elevated as expected for end-stage renal disease, patient's potassium is normal. At this point, I do not see any signs of acute processes. X-ray did not show any signs of obstruction. My plan would be to release him with follow-up to primary care physician a renal doctor tomorrow. Return for any worsening in symptoms as needed. The plan has discussed with him and he states understanding. Diagnosis Primary Impression: Poor appetite Disposition: 01 DISCHARGE HOME Condition: Stable Gwendolyn Ventura MD Jun 28, 2017 10:00
[2017-06-28 10:09] LABS: AUTOMATED NEUTROPHIL # 4.2 TH/MM3 (1.8-7.7); BASOPHIL % 0.2 % (0.0-2.0); EOSINOPHIL # 0.1 TH/MM3 (0-0.4); EOSINOPHIL % 0.9 % (0.0-4.0); HEMATOCRIT 34.3 % (39.0-51.0); HEMO FLAGS DIFF FINAL; LYMPH % 20.6 % (9.0-44.0); LYMPHOCYTE # 1.3 TH/MM3 (1.0-4.8); MEAN CELL VOLUME 85.9 FL (80.0-100.0); MEAN CORPUSCULAR HEMOGLOBIN 28.9 PG (27.0-34.0); MEAN CORPUSCULAR HGB CONC 33.6 % (32.0-36.0); MONO % 13.3 % (0.0-8.0); PLATELET COUNT 207 TH/MM3 (150-450); RED BLOOD COUNT 3.99 MIL/MM3 (4.50-5.90); RED CELL DISTRIBUTION WIDTH 16.9 % (11.6-17.2); WHITE BLOOD COUNT 6.4 TH/MM3 (4.0-11.0)
[2017-06-28 10:24] LABS: ALT (GPT) 21 U/L (12-78); ANION GAP 6 MEQ/L (5-15); AST (GOT) 19 U/L (15-37); BLOOD UREA NITROGEN 29 MG/DL (7-18); CHLORIDE 104 MEQ/L (98-107); GLOMERULAR FILTRATION RATE 17 ML/MIN (>89); POTASSIUM 4.8 MEQ/L (3.5-5.1); SODIUM (NA) 139 MEQ/L (136-145)
[2017-06-28 10:26] LABS: ALKALINE PHOSPHATASE 107 U/L (45-117); TOTAL BILIRUBIN ADULT 0.5 MG/DL (0.2-1.0)
--- NOTE | 2017-06-28 10:48 | RADRPT ---
EXAM DATE/TIME: 06/28/2017 10:28 [facility] COMPARISON: CHEST SINGLE AP, April 29, 2017, 18:52. INDICATIONS : Short of breath with mild wheezing. MEDICAL HISTORY : None. SURGICAL HISTORY : None. ENCOUNTER: Initial ACUITY: 2 days PAIN SCORE: 0/10 LOCATION: Bilateral chest FINDINGS: The cardiac silhouette is normal in transverse diameter. There is prominence of the aortic knob is wi th calcification characteristic of atherosclerotic vascular disease. The lungs are hyperinflated but clear. No effusions are identified. Old right rib fractures present. A stent is in place in the right subclavian artery or vein CONCLUSION: 1. No acute cardiopulmonary disease. Giles Cifuentes MD on June 28, 2017 at 10:46 Board Certified Radiologist. This report was verified electronically.
--- NOTE | 2017-06-28 10:49 | RADRPT ---
EXAM DATE/TIME: 06/28/2017 10:27 [facility] COMPARISON: No previous studies available for comparison. INDICATIONS : Nausea with vomiting x2 days. Mild diarrhea. MEDICAL HISTORY : None. SURGICAL HISTORY : None. ENCOUNTER: Initial ACUITY: 2 days PAIN SCORE: 3/10 LOCATION: Abdomen FINDINGS: Supine and upright views of the abdomen were performed. The abdominal bowel gas pattern is normal. No air fluid levels are seen. No abnormal masses, calcifications, or organomegaly is seen. The visu alized lower lungs are clear. No evidence of free intraperitoneal gas. The osseous structures are u nremarkable. CONCLUSION: 1. No evidence of obstruction. Giles Cifuentes MD on June 28, 2017 at 10:47 Board Certified Radiologist. This report was verified electronically.
[2017-06-28 11:59] VITALS: BP 112/62; PULSE 84; RESP 16; O2SAT 100
== END 2017-06-28 15:41 | disposition home or self-care (01) ==
LOC: NEPE 09:09
DX: R63.0 Anorexia (principal); I12.0 Hypertensive chronic kidney disease with stage 5 chronic kidney disease or end stage renal disease; N18.6 End stage renal disease; Z99.2 Dependence on renal dialysis; D64.9 Anemia, unspecified
CPT/HCPCS: 71010; 74020; 80053; 83690; 85025; 99284

== ENCOUNTER 2017-12-30 12:56 | Observation (INO) | payer MEDICARE, OTHER ==
[~2017-12-30] VITALS: Ht 170.2 cm; Wt 72.0 kg
[2017-12-30 15:16] VITALS: BP 142/67; PULSE 95; RESP 16; TEMP 97.7; O2SAT 100
[2017-12-30 15:53] VITALS: BP 124/64; PULSE 95; RESP 19; O2SAT 100
[2017-12-30 15:59] LABS: AUTOMATED NEUTROPHIL # 4.1 TH/MM3 (1.8-7.7); BASOPHIL % 0.2 % (0.0-2.0); EOSINOPHIL % 0.7 % (0.0-4.0); HEMATOCRIT 33.7 % (39.0-51.0); HEMOGLOBIN 11.2 GM/DL (13.0-17.0); LYMPH % 15.9 % (9.0-44.0); LYMPHOCYTE # 0.9 TH/MM3 (1.0-4.8); MEAN CORPUSCULAR HEMOGLOBIN 28.9 PG (27.0-34.0); MEAN CORPUSCULAR HGB CONC 33.2 % (32.0-36.0); MEAN PLATELET VOLUME 7.8 FL (7.0-11.0); MONO % 11.7 % (0.0-8.0); MONOCYTE # 0.7 TH/MM3 (0-0.9); NEUT % 71.5 % (16.0-70.0); PLATELET COUNT 209 TH/MM3 (150-450); RED BLOOD COUNT 3.88 MIL/MM3 (4.50-5.90); RED CELL DISTRIBUTION WIDTH 16.2 % (11.6-17.2); WHITE BLOOD COUNT 5.8 TH/MM3 (4.0-11.0)
[2017-12-30 16:11] LABS: PROTHROMBIN TIME - PATIENT 9.7 SEC (9.8-11.6)
[2017-12-30 16:16] LABS: BICARBONATE 28.8 MEQ/L (21.0-32.0); BLOOD UREA NITROGEN 15 MG/DL (7-18); CALCIUM 8.2 MG/DL (8.5-10.1); CHLORIDE 103 MEQ/L (98-107); CREATININE 2.16 MG/DL (0.60-1.30); GLOMERULAR FILTRATION RATE 35 ML/MIN (>89); GLUCOSE,RANDOM 91 MG/DL (74-106); SODIUM (NA) 137 MEQ/L (136-145)
--- NOTE | 2017-12-30 16:17 | PD ---
HPI Chief Complaint: Altered Mental Status Time Seen by Provider: 16:03 Travel History International Travel<30 days: No Contact w/Intl Traveler<30days: No Traveled to known affect area: No History of Present Illness HPI 87 y male present to the ED from his dialysis center after a witnessed syncopal episode that occurred at dialysis today. Says he had at least a partial hemodialysis. Patient is able to tell me that he was in dialysis and was brought to the hospital but is unable to tell me how he got to the hospital or which hospital he is in. Patient has no complaints today. Patient denies fever , chills, chest pain, shortness breath, abdominal pain, back pain. 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 He denies history of diabetes, hypertension, cardiac problems. His primary care physician is Dr. 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 PFSH Past Medical History Anemia: Yes Arthritis: No Asthma: No Anxiety: No Heart Rhythm Problems: No Cancer: No Cardiovascular Problems: No High Cholesterol: Yes Chest Pain: No Congestive Heart Failure: No COPD: No Cerebrovascular Accident: No Diabetes: No Dialysis: Yes Gastrointestinal Disorders: No GERD: No Headaches: No Hepatitis: No Hiatal Hernia: No Hypertension: Yes Implanted Vascular Access Dvce: Yes (fistula right upper arm ) Kidney Stones: No Musculoskeletal: No Neurologic: No Psychiatric: No Reproductive: No Respiratory: No Migraines: No Renal Failure: Yes Seizures: No Sleep Apnea: No Thyroid Disease: No Ulcer: No PNEUMOCCOCAL Vaccine (Year): 1 Past Surgical History Abdominal Surgery: No AICD: No Arteriovenous Shunt: No Cardiac Surgery: No Ear Surgery: No Endocrine Surgery: No Eye Surgery: No Genitourinary Surgery: No Gynecologic Surgery: No Insulin Pump: No Oral Surgery: Yes (t and a) Pacemaker: No Thoracic Surgery: Yes Tonsillectomy: Yes (T&A) Other Surgery: Yes (R. A/V FISTULA) Social History Alcohol Use: No Tobacco Use: No Substance Use: No Allergies-Medications (Allergen,Severity, Reaction): Coded Allergies: No Known Allergies (Verified Adverse Reaction, Unknown, 12/30/17) Reported Meds & Prescriptions Reported Meds & Active Scripts Active Reported Gabapentin 100 Mg Cap 200 Mg PO HS Vitamin B Complex (B-Complex Vitamins) 1 Tab 1 Tab PO DAILY Ferrous Sulfate DR (Ferrous Sulfate) 324 Mg Tabdr 324 Mg PO DAILY Namenda (Memantine) 5 Mg Tab 5 Mg PO HS Finasteride 5 Mg Tab 5 Mg PO DAILY Do not crush. Review of Systems Except as stated in HPI: all other systems reviewed are Neg Physical Exam Narrative GENERAL: WD, WN in NAD SKIN: Focused skin assessment warm/dry. HEAD: Atraumatic. Normocephalic. EYES: Pupils equal and round. No scleral icterus. No injection or drainage. ENT: No nasal bleeding or discharge. Mucous membranes pink and moist. NECK: Trachea midline. No JVD. CARDIOVASCULAR: Regular rate and rhythm. No murmur appreciated. RESPIRATORY: No accessory muscle use. Clear to auscultation. Breath sounds equal bilaterally. GASTROINTESTINAL: Abdomen soft, non-tender, nondistended. Hepatic and splenic margins not palpable. MUSCULOSKELETAL: No obvious deformities. No clubbing. No cyanosis. No edema. NEUROLOGICAL: Awake and alert. No obvious cranial nerve deficits. Motor grossly within normal limits. Normal speech. PSYCHIATRIC: Appropriate mood and affect; insight and judgment normal. Data Data Last Documented VS Vital Signs Date Time Temp Pulse Resp B/P (MAP) Pulse Ox O2 Delivery O2 Flow Rate FiO2 12/30/17 15:53 95 19 124/64 (84) 100 Nasal Cannula 2.00 12/30/17 15:16 97.7 Orders Orders Complete Blood Count With Diff (12/30/17 15:19) Basic Metabolic Panel (Bmp) (12/30/17 15:19) Act Partial Throm Time (Ptt) (12/30/17 15:19) Prothrombin Time / Inr (Pt) (12/30/17 15:19) Lactic Acid (12/30/17 15:19) Urinalysis - C+S If Indicated (12/30/17 15:19) Blood Culture (12/30/17 15:19) Chest, Single Ap (12/30/17 ) Electrocardiogram (12/30/17 ) Ct Brain W/O Iv Contrast(Rout) (12/30/17 ) Iv Access Insert/Monitor (12/30/17 16:06) Oximetry (12/30/17 16:06) Ckmb (Isoenzyme) Profile (12/30/17 15:50) Magnesium (Mg) (12/30/17 15:50) Troponin I (12/30/17 15:50) CKMB (12/30/17 15:50) CKMB% (12/30/17 15:50) Admit Order (Ed Use Only) (12/30/17 17:57) Labs Laboratory Tests Test 12/30/17 15:50 12/30/17 16:20 White Blood Count 5.8 TH/MM3 Red Blood Count 3.88 MIL/MM3 Hemoglobin 11.2 GM/DL Hematocrit 33.7 % Mean Corpuscular Volume 87.0 FL Mean Corpuscular Hemoglobin 28.9 PG Mean Corpuscular Hemoglobin Concent 33.2 % Red Cell Distribution Width 16.2 % Platelet Count 209 TH/MM3 Mean Platelet Volume 7.8 FL Neutrophils (%) (Auto) 71.5 % Lymphocytes (%) (Auto) 15.9 % Monocytes (%) (Auto) 11.7 % Eosinophils (%) (Auto) 0.7 % Basophils (%) (Auto) 0.2 % Neutrophils # (Auto) 4.1 TH/MM3 Lymphocytes # (Auto) 0.9 TH/MM3 Monocytes # (Auto) 0.7 TH/MM3 Eosinophils # (Auto) 0.0 TH/MM3 Basophils # (Auto) 0.0 TH/MM3 CBC Comment DIFF FINAL Differential Comment Prothrombin Time 9.7 SEC Prothromb Time International Ratio 1.0 RATIO Activated Partial Thromboplast Time 21.2 SEC Blood Urea Nitrogen 15 MG/DL Creatinine 2.16 MG/DL Random Glucose 91 MG/DL Calcium Level 8.2 MG/DL Magnesium Level 2.0 MG/DL Sodium Level 137 MEQ/L Potassium Level 3.8 MEQ/L Chloride Level 103 MEQ/L Carbon Dioxide Level 28.8 MEQ/L Anion Gap 5 MEQ/L Estimat Glomerular Filtration Rate 35 ML/MIN Lactic Acid Level 0.8 mmol/L Total Creatine Kinase 122 U/L Creatine Kinase MB 1.8 NG/ML Troponin I LESS THAN 0.02 NG/ML Urine Color LIGHT-YELLOW Urine Turbidity CLEAR Urine pH 7.5 Urine Specific [place] 1.006 Urine Protein 30 mg/dL Urine Glucose (UA) NEG mg/dL Urine Ketones NEG mg/dL Urine Occult Blood NEG Urine Nitrite NEG Urine Bilirubin NEG Urine Urobilinogen LESS THAN 2.0 MG/DL Urine Leukocyte Esterase TRACE Urine WBC 4 /hpf Urine Squamous Epithelial Cells 1 /hpf Urine Hyaline Casts 1 /lpf Microscopic Urinalysis Comment CATH-CULT NOT IND MDM Medical Decision Making Medical Screen Exam Complete: Yes Emergency Medical Condition: Yes Differential Diagnosis Altered mental status, urinary tract infection, metabolic disorder, dehydration Narrative Course 87 y male present to the ED from his dialysis center after a witnessed syncopal episode that occurred at dialysis today. Says he had at least a partial hemodialysis. Patient is able to tell me that he was in dialysis and was brought to the hospital but is unable to tell me how he got to the hospital or which hospital he is in. Patient has no complaints today. Patient denies fever , chills, chest pain, shortness breath, abdominal pain, back pain. 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 He denies history of diabetes, hypertension, cardiac problems. His primary care physician is Dr. 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 EKG shows Sinus rhythm without STEMI changes. Vital signs stable The exam findings demonstrated an 87-year-old male no acute distress. Patient is alert to person, place (hospital), but not to time (believes it is Tuesday or Tuesday) Labs show white blood cell 5.8, chronic anemia, potassium 3.8, BUN/creatinine 15 /2.16, lactic 0.8, calcium 8.2, negative cardiac enzymes. I spoke with his sons regarding this patient. They state that they are down visiting and is due to return home tomorrow. Says he has a history of dementia but is otherwise able to converse normally. They state that he is at his baseline. They explained that patient has a poor nutritional status and likely did not and has not had proper fluid intake and proper nutrition. Previous episodes were likely the result of having many HTN medications. Last Impressions Head CT 12/30/17 0000 Signed Impressions: Service Date/Time: Saturday, December 30, 2017 16:44 - CONCLUSION: Negative for acute process. Richie Sorensen MD FACYasmeen Chest X-Ray 12/30/17 0000 Signed Impressions: Service Date/Time: Saturday, December 30, 2017 15:41 - CONCLUSION: No acute disease. Richie Sorensen MD FACR Patient will be admitted for observation with nephrology consult. Diagnosis Primary Impression: Syncope Qualified Codes: R55 - Syncope and collapse Admitting Information Admitting Physician Requests: Observation Condition: Stable Mari Zhong Dec 30, 2017 16:17
--- NOTE | 2017-12-30 16:59 | RADRPT ---
EXAM DATE/TIME: 12/30/2017 16:44 [facility] COMPARISON: CT BRAIN W/O CONTRAST, April 29, 2017, 19:38. INDICATIONS : Altered mental status with confusion. RADIATION DOSE: 48.13 CTDIvol (mGy) MEDICAL HISTORY : Hypertension. Renal insufficiency. SURGICAL HISTORY : Dialysis. ENCOUNTER: Initial ACUITY: 1 day PAIN SCALE: 4/10 LOCATION: Bilateral cranial TECHNIQUE: Multiple contiguous axial images were obtained of the head. Using automated exposure control and adj ustment of the mA and/or kV according to patient size, radiation dose was kept as low as reasonably a chievable to obtain optimal diagnostic quality images. DICOM format image data is available electro nically for review and comparison. FINDINGS: CEREBRUM: The ventricles are normal for age. No evidence of midline shift, mass lesion, hemorrhage or acute in farction. No extra-axial fluid collections are seen. POSTERIOR FOSSA: The cerebellum and brainstem are intact. The 4th ventricle is midline. The cerebellopontine angle i s unremarkable. EXTRACRANIAL: The visualized portion of the orbits is intact. SKULL: The calvaria is intact. No evidence of skull fracture. CONCLUSION: Negative for acute process. Richie Sorensen MD FACR on December 30, 2017 at 16:57 Board Certified Radiologist. This report was verified electronically.
--- NOTE | 2017-12-30 17:00 | RADRPT ---
EXAM DATE/TIME: 12/30/2017 15:41 [facility] COMPARISON: CHEST SINGLE AP, June 28, 2017, 10:28. INDICATIONS : Syncope MEDICAL HISTORY : Renal failure, chronic. Hypertension SURGICAL HISTORY : None. ENCOUNTER: Initial ACUITY: 1 day PAIN SCORE: Non-responsive. LOCATION: chest FINDINGS: A single view of the chest demonstrates the lungs to be symmetrically aerated without evidence of mas s, infiltrate or effusion. The cardiomediastinal contours are unremarkable. Moderate mitral valve c alcifications are evident Osseous structures are intact. CONCLUSION: No acute disease. Richie Sorensen MD FACR on December 30, 2017 at 16:58 Board Certified Radiologist. This report was verified electronically.
[2017-12-30 17:20] LABS: TROPONIN I LESS THAN 0.02 NG/ML (0.02-0.05)
[2017-12-30 17:23] LABS: BILIRUBIN, URINE NEG (NEG); BLOOD, URINE NEG (NEG); GLUCOSE,URINE NEG (NEG); HYALINE CAST, URINE 1 /lpf (RARE); KETONE, URINE NEG (NEG); NITRITE,URINE NEG (NEG); PH, URINE 7.5 (5.0-8.5); SQUAMOUS EPITHELIAL CELL URINE 1 /hpf (0-5); URINE COLOR LIGHT-YELLOW (YELLW/STRAW); URINE LEUKOCYTE ESTERASE TRACE (NEG)
--- NOTE | 2017-12-30 17:40 | PD ---
Physical Exam Narrative SKIN: Focused skin assessment warm/dry. HEAD: Normocephalic. EYES: No scleral icterus. No injection or drainage. ENT: No nasal bleeding or discharge. Mucous membranes pink and moist. NECK: Trachea midline. CARDIOVASCULAR: Regular rate and rhythm. RESPIRATORY: No accessory muscle use. MUSCULOSKELETAL: No obvious deformities. NEUROLOGICAL: Awake. Moves extremities, clear speech Data Data Last Documented VS Vital Signs Date Time Temp Pulse Resp B/P (MAP) Pulse Ox O2 Delivery O2 Flow Rate FiO2 12/30/17 15:53 95 19 124/64 (84) 100 Nasal Cannula 2.00 12/30/17 15:16 97.7 Orders Orders Complete Blood Count With Diff (12/30/17 15:19) Basic Metabolic Panel (Bmp) (12/30/17 15:19) Act Partial Throm Time (Ptt) (12/30/17 15:19) Prothrombin Time / Inr (Pt) (12/30/17 15:19) Lactic Acid (12/30/17 15:19) Urinalysis - C+S If Indicated (12/30/17 15:19) Blood Culture (12/30/17 15:19) Chest, Single Ap (12/30/17 ) Electrocardiogram (12/30/17 ) Ct Brain W/O Iv Contrast(Rout) (12/30/17 ) Iv Access Insert/Monitor (12/30/17 16:06) Oximetry (12/30/17 16:06) Ckmb (Isoenzyme) Profile (12/30/17 15:50) Magnesium (Mg) (12/30/17 15:50) Troponin I (12/30/17 15:50) CKMB (12/30/17 15:50) CKMB% (12/30/17 15:50) Labs Laboratory Tests Test 12/30/17 15:50 12/30/17 16:20 White Blood Count 5.8 TH/MM3 Red Blood Count 3.88 MIL/MM3 Hemoglobin 11.2 GM/DL Hematocrit 33.7 % Mean Corpuscular Volume 87.0 FL Mean Corpuscular Hemoglobin 28.9 PG Mean Corpuscular Hemoglobin Concent 33.2 % Red Cell Distribution Width 16.2 % Platelet Count 209 TH/MM3 Mean Platelet Volume 7.8 FL Neutrophils (%) (Auto) 71.5 % Lymphocytes (%) (Auto) 15.9 % Monocytes (%) (Auto) 11.7 % Eosinophils (%) (Auto) 0.7 % Basophils (%) (Auto) 0.2 % Neutrophils # (Auto) 4.1 TH/MM3 Lymphocytes # (Auto) 0.9 TH/MM3 Monocytes # (Auto) 0.7 TH/MM3 Eosinophils # (Auto) 0.0 TH/MM3 Basophils # (Auto) 0.0 TH/MM3 CBC Comment DIFF FINAL Differential Comment Prothrombin Time 9.7 SEC Prothromb Time International Ratio 1.0 RATIO Activated Partial Thromboplast Time 21.2 SEC Blood Urea Nitrogen 15 MG/DL Creatinine 2.16 MG/DL Random Glucose 91 MG/DL Calcium Level 8.2 MG/DL Magnesium Level 2.0 MG/DL Sodium Level 137 MEQ/L Potassium Level 3.8 MEQ/L Chloride Level 103 MEQ/L Carbon Dioxide Level 28.8 MEQ/L Anion Gap 5 MEQ/L Estimat Glomerular Filtration Rate 35 ML/MIN Lactic Acid Level 0.8 mmol/L Total Creatine Kinase 122 U/L Creatine Kinase MB 1.8 NG/ML Troponin I LESS THAN 0.02 NG/ML Urine Color LIGHT-YELLOW Urine Turbidity CLEAR Urine pH 7.5 Urine Specific [place] 1.006 Urine Protein 30 mg/dL Urine Glucose (UA) NEG mg/dL Urine Ketones NEG mg/dL Urine Occult Blood NEG Urine Nitrite NEG Urine Bilirubin NEG Urine Urobilinogen LESS THAN 2.0 MG/DL Urine Leukocyte Esterase TRACE Urine WBC 4 /hpf Urine Squamous Epithelial Cells 1 /hpf Urine Hyaline Casts 1 /lpf Microscopic Urinalysis Comment CATH-CULT NOT IND MDM Supervised Visit with JACK: Yes Interpretation(s) CBC & BMP Diagram 12/30/17 15:50 Calcium Level 8.2 L, Magnesium Level 2.0 Last [address] 12/30/17 0000 Signed Impressions: Service Date/Time: Saturday, December 30, 2017 16:44 - CONCLUSION: Negative for acute process. Richie Sorensen MD FACR Chest X-Ray 12/30/17 0000 Signed Impressions: Service Date/Time: Saturday, December 30, 2017 15:41 - CONCLUSION: No acute disease. Richie Sorensen MD FACR Narrative Course I, Dr. Duarte, have reviewed the advance practice practitioner's documentation and am in agreement, met with the patient face to face, made the diagnosis, and the medical decision making was done by me. *My assessment and Findings: 87-year-old male presents with episode of hypotension and unresponsiveness at dialysis without emergent findings here. He will be admitted for further workup of syncopal event and completion of dialysis. Diagnosis Primary Impression: Syncope Qualified Codes: R55 - Syncope and collapse Condition: Stable Kateryna Duarte MD Dec 30, 2017 17:39
--- NOTE | 2017-12-30 18:43 | HHI.HP ---
[facility] Primary Care Physician Samuel Padron MD Admission Diagnosis syncope Diagnoses: Chief Complaint: dizziness Travel History International Travel<30 Days: No Contact w/Intl Traveler <30 Da: No Traveled to Known Affected Are: No History of Present Illness 72 y/o male with a history of ESRD was brought to the ED for eval of syncope while in HD today. Patient is a poor historian and he does not remember . He complains of dizziness but can not elaborate on it, states he has occasional headaches. He denies any chest pain or sob. He doesn't remember his medical history or family history. He is oriented to self and time but unable to state where he is. Review of Systems ROS Limitations: Clinical Condition, Poor Historian Except as stated in HPI: all other systems reviewed are Neg Past Family Social History Past Medical History HTN Hyperlipidemia ESRD on HD M/W/F Past Surgical History Tonsillectomy RUE AV Fistula Reported Medications Reported Meds & Active Scripts Active Reported Gabapentin 100 Mg Cap 200 Mg PO HS Vitamin B Complex (B-Complex Vitamins) 1 Tab 1 Tab PO DAILY Ferrous Sulfate DR (Ferrous Sulfate) 324 Mg Tabdr 324 Mg PO DAILY Namenda (Memantine) 5 Mg Tab 5 Mg PO HS Finasteride 5 Mg Tab 5 Mg PO DAILY Do not crush. Allergies: Coded Allergies: No Known Allergies (Verified Allergy, Unknown, 12/30/17) Family History Patient has no family history Social History Denies tobacco, alcohol and drugs Physical Exam Vital Signs Vital Signs Date Time Temp Pulse Resp B/P (MAP) Pulse Ox O2 Delivery O2 Flow Rate FiO2 12/30/17 15:53 95 19 124/64 (84) 100 Nasal Cannula 2.00 12/30/17 15:16 97.7 95 16 142/67 (92) 100 Physical Exam GENERAL: This is a well-nourished, well-developed patient, in no apparent distress. SKIN: No rashes, ecchymoses or lesions. Cool and dry. HEAD: Atraumatic. Normocephalic. No temporal or scalp tenderness. EYES: Pupils equal round and reactive. Extraocular motions intact. No scleral icterus. No injection or drainage. ENT: Nose without bleeding, purulent drainage or septal hematoma. Throat without erythema, tonsillar hypertrophy or exudate. Uvula midline. Airway patent. NECK: Trachea midline. No JVD or lymphadenopathy. Supple, nontender, no meningeal signs. CARDIOVASCULAR: Regular rate and rhythm without murmurs, gallops, or rubs. RESPIRATORY: Clear to auscultation. Breath sounds equal bilaterally. No wheezes , rales, or rhonchi. GASTROINTESTINAL: Abdomen soft, non-tender, nondistended. No hepato-splenomegaly , or palpable masses. No guarding. MUSCULOSKELETAL: Extremities without clubbing, cyanosis, or edema. No joint tenderness, effusion, or edema noted. No calf tenderness. Negative Homans sign bilaterally. NEUROLOGICAL: Awake and alert. Cranial nerves II through XII intact. Motor and sensory grossly within normal limits. Five out of 5 muscle strength in all muscle groups. Normal speech. Laboratory Laboratory Tests Test 12/30/17 15:50 12/30/17 16:20 White Blood Count 5.8 Red Blood Count 3.88 Hemoglobin 11.2 Hematocrit 33.7 Mean Corpuscular Volume 87.0 Mean Corpuscular Hemoglobin 28.9 Mean Corpuscular Hemoglobin Concent 33.2 Red Cell Distribution Width 16.2 Platelet Count 209 Mean Platelet Volume 7.8 Neutrophils (%) (Auto) 71.5 Lymphocytes (%) (Auto) 15.9 Monocytes (%) (Auto) 11.7 Eosinophils (%) (Auto) 0.7 Basophils (%) (Auto) 0.2 Neutrophils # (Auto) 4.1 Lymphocytes # (Auto) 0.9 Monocytes # (Auto) 0.7 Eosinophils # (Auto) 0.0 Basophils # (Auto) 0.0 CBC Comment DIFF FINAL Differential Comment Prothrombin Time 9.7 Prothromb Time International Ratio 1.0 Activated Partial Thromboplast Time 21.2 Blood Urea Nitrogen 15 Creatinine 2.16 Random Glucose 91 Calcium Level 8.2 Magnesium Level 2.0 Sodium Level 137 Potassium Level 3.8 Chloride Level 103 Carbon Dioxide Level 28.8 Anion Gap 5 Estimat Glomerular Filtration Rate 35 Lactic Acid Level 0.8 Total Creatine Kinase 122 Creatine Kinase MB 1.8 Troponin I LESS THAN 0.02 Urine Color LIGHT-YELLOW Urine Turbidity CLEAR Urine pH 7.5 Urine Specific [place] 1.006 Urine Protein 30 Urine Glucose (UA) NEG Urine Ketones NEG Urine Occult Blood NEG Urine Nitrite NEG Urine Bilirubin NEG Urine Urobilinogen LESS THAN 2.0 Urine Leukocyte Esterase TRACE Urine WBC 4 Urine Squamous Epithelial Cells 1 Urine Hyaline Casts 1 Microscopic Urinalysis Comment CATH-CULT NOT IND Date/Time Source Procedure Growth Status 12/30/17 15:30 Blood Peripheral Aerobic Blood Culture Pending Received 12/30/17 15:30 Blood Peripheral Anaerobic Blood Culture Pending Received Result Diagram: 12/30/17 1550 12/30/17 1550 Imaging Reported Meds & Active Scripts Active Reported Gabapentin 100 Mg Cap 200 Mg PO HS Vitamin B Complex (B-Complex Vitamins) 1 Tab 1 Tab PO DAILY Ferrous Sulfate DR (Ferrous Sulfate) 324 Mg Tabdr 324 Mg PO DAILY Namenda (Memantine) 5 Mg Tab 5 Mg PO HS Finasteride 5 Mg Tab 5 Mg PO DAILY Do not crush. Caprini VTE Risk Assessment Caprini VTE Risk Assessment: Mod/High Risk (score >= 2) Caprini Risk Assessment Model Point Value = 1 Point Value = 2 Point Value = 3 Point Value = 5 Age 41-60 Minor surgery BMI > 25 kg/m2 Swollen legs Varicose veins or History of unexplained or recurrent spontaneous Oral contraceptives or hormone replacement Sepsis (< 1 month) Serious lung disease, including pneumonia (< 1 month) Abnormal pulmonary function Acute myocardial infarction Congestive heart failure (< 1 month) History of inflammatory bowel disease Medical patient at bed rest Age 61-74 Arthroscopic surgery Major open surgery (> 45 min) Laparoscopic surgery (> 45 min) Malignancy Confined to bed (> 72 hours) Immobilizing plaster cast Central venous access Age >= 75 History of VTE Family history of VTE Factor V Leiden Prothrombin [id number] Lupus anticoagulant Anticardiolipin antibodies Elevated serum homocysteine Heparin-induced thrombocytopenia Other congenital or acquired thrombophilia Stroke (< 1 month) Elective arthroplasty Hip, pelvis, or leg fracture Acute spinal cord injury (< 1 month) Prophylaxis Regimen Total Risk Factor Score Risk Level Prophylaxis Regimen 0-1 Low Early ambulation 2 Moderate Order ONE of the following: *Sequential Compression Device (SCD) *Heparin 5000 units SQ BID 3-4 Higher Order ONE of the following medications: *Heparin 5000 units SQ TID *Enoxaparin/Lovenox 40 mg SQ daily (WT < 150 kg, CrCl > 30 mL/min) *Enoxaparin/Lovenox 30 mg SQ daily (WT < 150 kg, CrCl > 10-29 mL/min) *Enoxaparin/Lovenox 30 mg SQ BID (WT < 150 kg, CrCl > 30 mL/min) AND/OR *Sequential Compression Device (SCD) 5 or more Highest Order ONE of the following medications: *Heparin 5000 units SQ TID (Preferred with Epidurals) *Enoxaparin/Lovenox 40 mg SQ daily (WT < 150 kg, CrCl > 30 mL/min) *Enoxaparin/Lovenox 30 mg SQ daily (WT < 150 kg, CrCl > 10-29 mL/min) *Enoxaparin/Lovenox 30 mg SQ BID (WT < 150 kg, CrCl > 30 mL/min) AND *Sequential Compression Device (SCD) Assessment and Plan Assessment and Plan 87 y/o male with a history of ESRD with syncope while in HD Syncope, unknown etiology Head CT reviewed unremarkable -Monitor Tele, may need a Holter monitor PT eval and treat Orthostatic BP ESRD on HD, chronic, HD on //-Consult nephrology Dr Toribio for recommendations DVT prophylaxis: SCDs Discussed Condition With pt, nurse, ED physician Nyla Leon MD Dec 30, 2017 18:43
[2017-12-30] MEDS ORDERED: SODIUM CHLORIDE 0.9% FLUSH 10 ML FLUSH IV FLUSH PRN (18:45)
[2017-12-30 19:41] VITALS: BP 124/62; PULSE 92; RESP 16; O2SAT 98
[2017-12-30 20:07] VITALS: O2SAT 100
[2017-12-30 20:30] VITALS: BP_SYST 118; BP_SYST 123; BP_SYST 134; BP_DIAS 60; BP_DIAS 66; PULSE 93; RESP 18; TEMP 97.9; O2SAT 99
[2017-12-30] MEDS: SODIUM CHLORIDE 0.9% FLUSH 10 ML FLUSH IV FLUSH SCH (21:00)
[2017-12-30 23:13] VITALS: BP 106/71; PULSE 92; RESP 18; TEMP 97.9; O2SAT 99
[2017-12-31] VITALS (9 sets, daily range): BP systolic 110–130; BP diastolic 62–74; PULSE 64–105; RESP 16–18; TEMP 97.8–98.7; O2SAT 95–99
[2017-12-31 07:12] LABS: AUTOMATED NEUTROPHIL # 3.2 TH/MM3 (1.8-7.7); BASOPHIL % 0.4 % (0.0-2.0); EOSINOPHIL # 0.1 TH/MM3 (0-0.4); EOSINOPHIL % 1.3 % (0.0-4.0); HEMATOCRIT 39.1 % (39.0-51.0); HEMOGLOBIN 12.8 GM/DL (13.0-17.0); LYMPH % 31.5 % (9.0-44.0); LYMPHOCYTE # 1.8 TH/MM3 (1.0-4.8); MEAN CELL VOLUME 88.1 FL (80.0-100.0); MEAN CORPUSCULAR HGB CONC 32.9 % (32.0-36.0); MEAN PLATELET VOLUME 7.7 FL (7.0-11.0); MONO % 11.9 % (0.0-8.0); MONOCYTE # 0.7 TH/MM3 (0-0.9); NEUT % 54.9 % (16.0-70.0); PLATELET COUNT 240 TH/MM3 (150-450); RED BLOOD COUNT 4.43 MIL/MM3 (4.50-5.90); RED CELL DISTRIBUTION WIDTH 15.9 % (11.6-17.2); WHITE BLOOD COUNT 5.8 TH/MM3 (4.0-11.0)
[2017-12-31 07:44] LABS: BICARBONATE 26.9 MEQ/L (21.0-32.0); CALCIUM 9.3 MG/DL (8.5-10.1); CREATININE 3.28 MG/DL (0.60-1.30)
[2017-12-31] MEDS: SODIUM CHLORIDE 0.9% FLUSH 10 ML FLUSH IV FLUSH SCH ×2 (09:39→20:52)
--- NOTE | 2017-12-31 11:06 | HHI.PR ---
Subjective Remarks F/u syncope. Patient has no complaints denies headache, dizziness, chest pain shortness of breath. He has dementia and is able to recall what happened. EMR shows previous workup for vasovagal syncope. Discussed with nursing Objective Vitals Vital Signs Date Time Temp Pulse Resp B/P (MAP) Pulse Ox O2 Delivery O2 Flow Rate FiO2 12/31/17 08:06 98.1 86 17 110/67 (81) 97 12/31/17 04:14 83 12/31/17 03:45 97.9 89 18 116/66 (83) 99 12/30/17 23:13 97.9 92 18 106/71 (83) 99 12/30/17 20:30 97.9 93 18 123/60 (81) 99 118/60 (79) 134/66 (88) 12/30/17 20:07 100 Nasal Cannula 2.00 12/30/17 19:41 92 16 124/62 (82) 98 Room Air 12/30/17 15:53 95 19 124/64 (84) 100 Nasal Cannula 2.00 12/30/17 15:16 97.7 95 16 142/67 (92) 100 Result Diagram: 12/31/17 0624 12/31/17 0624 Imaging Last Impressions Head CT 12/30/17 0000 Signed Impressions: Service Date/Time: Saturday, December 30, 2017 16:44 - CONCLUSION: Negative for acute process. Richie oSrensen MD FACR Chest X-Ray 12/30/17 0000 Signed Impressions: Service Date/Time: Saturday, December 30, 2017 15:41 - CONCLUSION: No acute disease. Richie Sorensen MD FACR Objective Remarks GENERAL: This is a well-nourished, well-developed patient, in no apparent distress. SKIN: No rashes, ecchymoses or lesions. Cool and dry. CARDIOVASCULAR: Regular rate and rhythm without murmurs, gallops, or rubs. RESPIRATORY: Clear to auscultation. Breath sounds equal bilaterally. No wheezes , rales, or rhonchi. GASTROINTESTINAL: Abdomen soft, non-tender, nondistended. No guarding. MUSCULOSKELETAL: Extremities without clubbing, cyanosis, or edema. No joint tenderness, effusion, or edema noted. No calf tenderness. Negative Homans sign bilaterally. NEUROLOGICAL: Awake and alert. Cranial nerves II through XII intact. Motor and sensory grossly within normal limits. Five out of 5 muscle strength in all muscle groups. Normal speech. Procedures none A/P Problem List: (1) Syncope ICD Code: R55 - Syncope and collapse Status: Acute Assessment and Plan 87 y/o male with a history of ESRD with syncope while in HD Syncope, reportedly had low BP during hemodialysis. He is not orthostatic at this time. Syncope workup unremarkable so far pending Holter monitor and EEG. Monitor telemetry. ESRD on HD, chronic, HD on M//-Consult nephrology Dr Toribio for recommendations Medical conditions of hypertension hyperlipidemia. Continue outpatient medications and appropriate DVT prophylaxis: SCDs and subcu heparin Discharge Planning Discharge if a Holter monitor and EEG unremarkable Problem Qualifiers (1) Syncope: Qualified Codes: R55 - Syncope and collapse Otf Kohli MD Dec 31, 2017 11:06
--- NOTE | 2017-12-31 13:31 | PD.CONS ---
[facility] Service Nephrology Consult Requested By Dr. Mata Reason for Consult Known to our services for ESRD on HD Primary Care Physician Samuel Padron MD History of Present Illness The patient is an 87 yo AA male who was sent to this facility via [facility] after a syncopal episode during dialysis. It was noted that he had a significant drop in his BP during treatment and had to get 1L of fluid resuscitation at the unit. His ultrafiltration was set at 2200mL. He was coherent at time of [facility] arrival, but very lethargic so it was thought to be within his best interest to come to the hospital for observation. His dialysis needles were removed by [facility] dialysis team. He is seen sitting in ED in [facility]. He is pleasantly confused. No complaints at this time. (Kelly Campbell) Review of Systems ROS Limitations: Poor Historian (Kelly Campbell) Past Family Social History Allergies: Coded Allergies: No Known Allergies (Verified Allergy, Unknown, 12/30/17) Past Medical History HTN Hyperlipidemia ESRD on HD M/W/F Past Surgical History Tonsillectomy RUE AV Fistula Reported Medications Gabapentin 100 Mg Cap 200 Mg PO HS Vitamin B Complex (B-Complex Vitamins) 1 Tab 1 Tab PO DAILY Ferrous Sulfate DR (Ferrous Sulfate) 324 Mg Tabdr 324 Mg PO DAILY Namenda (Memantine) 5 Mg Tab 5 Mg PO HS Finasteride 5 Mg Tab 5 Mg PO DAILY Do not crush. Active Ordered Medications Current Medications Medications (Trade) Dose Ordered Sig/Jonathon Route Start Time Stop Time Status Last Admin (NS Flush) 2 ml UNSCH PRN IV FLUSH 12/30/17 18:45 (NS Flush) 2 ml BID IV FLUSH 12/30/17 21:00 12/31/17 09:39 Family History NC Social History Denies EtOH, illicits, tobacco (Kelly Campbell) Physical Exam Vital Signs Vital Signs Date Time Temp Pulse Resp B/P (MAP) Pulse Ox O2 Delivery O2 Flow Rate FiO2 12/31/17 13:17 118/65 (82) 12/31/17 13:16 112/63 (79) 12/31/17 13:15 98.0 95 18 124/63 (83) 99 12/31/17 12:40 97.8 78 16 127/62 (83) 95 12/31/17 08:06 98.1 86 17 110/67 (81) 97 12/31/17 04:14 83 12/31/17 03:45 97.9 89 18 116/66 (83) 99 12/30/17 23:13 97.9 92 18 106/71 (83) 99 12/30/17 20:30 97.9 93 18 123/60 (81) 99 118/60 (79) 134/66 (88) 12/30/17 20:07 100 Nasal Cannula 2.00 12/30/17 19:41 92 16 124/62 (82) 98 Room Air 12/30/17 15:53 95 19 124/64 (84) 100 Nasal Cannula 2.00 12/30/17 15:16 97.7 95 16 142/67 (92) 100 Physical Exam GENERAL: Sitting on edge of the bed in his street clothes. Very pleasantly confused. SKIN: Warm and dry. HEAD: Atraumatic. Normocephalic. EYES: Pupils equal and round. No scleral icterus. No injection or drainage. ENT: No nasal bleeding or discharge. Mucous membranes pink and moist. NECK: Trachea midline. No JVD. CARDIOVASCULAR: Regular rate and rhythm. grade 2/6 murmur RESPIRATORY: No accessory muscle use. Clear to auscultation. Breath sounds equal bilaterally. GASTROINTESTINAL: Abdomen soft, non-tender, nondistended. Hepatic and splenic margins not palpable. MUSCULOSKELETAL: Extremities without clubbing, cyanosis, or edema. No obvious deformities. NEUROLOGICAL: Awake and alert. Normal speech. PSYCHIATRIC: Confused Laboratory Laboratory Tests Test 12/30/17 15:50 12/30/17 16:20 12/31/17 06:24 White Blood Count 5.8 5.8 Red Blood Count 3.88 4.43 Hemoglobin 11.2 12.8 Hematocrit 33.7 39.1 Mean Corpuscular Volume 87.0 88.1 Mean Corpuscular Hemoglobin 28.9 29.0 Mean Corpuscular Hemoglobin Concent 33.2 32.9 Red Cell Distribution Width 16.2 15.9 Platelet Count 209 240 Mean Platelet Volume 7.8 7.7 Neutrophils (%) (Auto) 71.5 54.9 Lymphocytes (%) (Auto) 15.9 31.5 Monocytes (%) (Auto) 11.7 11.9 Eosinophils (%) (Auto) 0.7 1.3 Basophils (%) (Auto) 0.2 0.4 Neutrophils # (Auto) 4.1 3.2 Lymphocytes # (Auto) 0.9 1.8 Monocytes # (Auto) 0.7 0.7 Eosinophils # (Auto) 0.0 0.1 Basophils # (Auto) 0.0 0.0 CBC Comment DIFF FINAL DIFF FINAL Differential Comment Prothrombin Time 9.7 Prothromb Time International Ratio 1.0 Activated Partial Thromboplast Time 21.2 Blood Urea Nitrogen 15 20 Creatinine 2.16 3.28 Random Glucose 91 84 Calcium Level 8.2 9.3 Magnesium Level 2.0 Sodium Level 137 137 Potassium Level 3.8 4.1 Chloride Level 103 103 Carbon Dioxide Level 28.8 26.9 Anion Gap 5 7 Estimat Glomerular Filtration Rate 35 22 Lactic Acid Level 0.8 Total Creatine Kinase 122 Creatine Kinase MB 1.8 Troponin I LESS THAN 0.02 Urine Color LIGHT-YELLOW Urine Turbidity CLEAR Urine pH 7.5 Urine Specific Emily 1.006 Urine Protein 30 Urine Glucose (UA) NEG Urine Ketones NEG Urine Occult Blood NEG Urine Nitrite NEG Urine Bilirubin NEG Urine Urobilinogen LESS THAN 2.0 Urine Leukocyte Esterase TRACE Urine WBC 4 Urine Squamous Epithelial Cells 1 Urine Hyaline Casts 1 Microscopic Urinalysis Comment CATH-CULT NOT IND Date/Time Source Procedure Growth Status 12/30/17 15:30 Blood Peripheral Aerobic Blood Culture - Preliminary NO GROWTH IN 1 DAY Resulted 12/30/17 15:30 Blood Peripheral Anaerobic Blood Culture - Preliminary NO GROWTH IN 1 DAY Resulted (Kelly Campbell) Result Diagram: 12/31/17 0624 12/31/17 0624 Imaging Last Impressions Head CT 12/30/17 0000 Signed Impressions: Service Date/Time: Saturday, December 30, 2017 16:44 - CONCLUSION: Negative for acute process. Richie Sorensen MD FACR Chest X-Ray 12/30/17 0000 Signed Impressions: Service Date/Time: Saturday, December 30, 2017 15:41 - CONCLUSION: No acute disease. Richie Sorensen MD FACR (Kelly Campbell) Assessment and Plan Problem List: (1) ESRD (end stage renal disease) on dialysis ICD Codes: N18.6 - End stage renal disease; Z99.2 - Dependence on renal dialysis Status: Chronic Plan: If still in house on [place], will see for dialysis Otherwise OK to be discharged if cleared by primary team (2) Syncope ICD Codes: R55 - Syncope and collapse Status: Acute Plan: Potentially related to ultrafiltration with dialysis. Will defer further w/u if needed to primary team (3) Dementia ICD Codes: F03.90 - Unspecified dementia without behavioral disturbance Status: Chronic (4) HTN (hypertension) ICD Codes: I10 - Essential (primary) hypertension Status: Chronic (Kelly Campbell) Assessment and Plan The exam, history, and the medical decision-making described in the above note were completed with the assistance of the PAMila. I reviewed and agree with the findings presented. (Robert Toribio MD) Problem Qualifiers (1) Syncope: Qualified Codes: R55 - Syncope and collapse Kelly Campbell Dec 31, 2017 13:31 Robert Toribio MD Jan 01, 2018 13:10
--- NOTE | 2017-12-31 15:04 | HHI.DCPOC ---
Discharge Care Plan Diagnosis: (1) Syncope (2) Dementia (3) ESRD (end stage renal disease) on dialysis (4) HTN (hypertension) Goals to Promote Your Health * To prevent worsening of your condition and complications * To maintain your health at the optimal level Directions to Meet Your Goals Take your medications as prescribed Follow your dietary instruction Follow activity as directed Keep your appointments as scheduled Take your immunizations and boosters as scheduled If your symptoms worsen call your PCP, if no PCP go to Urgent Care Center or Emergency Room Smoking is Dangerous to Your Health. Avoid second hand smoke Call the 24-hour hour crisis hotline for domestic abuse at Jayashree Casas PA-C Dec 31, 2017 15:04
--- NOTE | 2017-12-31 15:47 | ECHRPT ---
Indication: SYNCOPE CONCLUSIONS The left ventricular systolic function is hyperdynamic with an estimated ejection fraction in the ra nge of 65- 70%. Normal left ventricular size. Wall thickness is normal. No regional wall motion abnormalities are present. Mild mitral valve regurgitation. Calcification of the right coronary cusp. Trace aortic valve regurgitation. There is trace tricuspid valve regurgitation. The estimated pulmonary arterial pressure is 38.3 mmHg. BP: / HR: Rhythm: Sinus MEASUREMENTS (Male / Female) Normal Values Technical Quality:Good 2D ECHO LV Diastolic Diameter PLAX 4.1 cm 4.2 - 5.9 / 3.9 - 5.3 cm LV Systolic Diameter PLAX 2.4 cm IVS Diastolic Thickness 1.0 cm 0.6 - 1.0 / 0.6 - 0.9 cm LVPW Diastolic Thickness 1.0 cm 0.6 - 1.0 / 0.6 - 0.9 cm LV Relative Wall Thickness 0.5 RV Internal Dim ED PLAX 3.0 cm LVOT Diameter 1.9 cm LA Systolic Diameter LX 3.4 cm 3.0 - 4.0 / 2.7 - 3.8 cm LV Ejection Fraction MOD 4C 68.2 % LV Ejection Fraction 4C AL 69.5 % M-MODE LV Diastolic Diameter MM 3.9 cm 4.2 - 5.9 / 3.9 - 5.3 cm LV Systolic Diameter MM 2.3 cm LV Ejection Fraction MM Teich 72.6 % IVS Diastolic Thickness MM 1.0 cm 0.6 - 1.0 / 0.6 - 0.9 cm LVPW Diastolic Thickness MM 1.0 cm 0.6 - 1.0 / 0.6 - 0.9 cm LV Relative Wall Thickness MM 0.5 0.24 - 0.42 / 0.22 - 0.42 LV Mass Index MM 72.9 g/m 49 - 115 / 43 - 95 g/m Aortic Root Diameter MM 1.9 cm LA Systolic Diameter MM 2.7 cm LA Ao Ratio MM 1.4 AV Cusp Separation MM 1.5 cm DOPPLER AV Peak Velocity 176.0 cm/s AV Peak Gradient 12.4 mmHg AI Peak Velocity 183.0 cm/s AI Peak Gradient 13.4 mmHg AI Pressure Half Time 569.0 ms LVOT Peak Velocity 103.0 cm/s LVOT Peak Gradient 4.2 mmHg AV Area Cont Eq pk 1.7 cm LV E' Lateral Velocity 8.4 cm/s LV E' Septal Velocity 6.9 cm/s TR Peak Velocity 266.0 cm/s TR Peak Gradient 28.3 mmHg Right Atrial Pressure 10.0 mmHg Pulmonary Artery Systolic Pressu 38.3 mmHg Right Ventricular Systolic Press 38.3 mmHg PV Peak Velocity 85.5 cm/s PV Peak Gradient 2.9 mmHg FINDINGS LEFT VENTRICLE The left ventricular systolic function is hyperdynamic with an estimated ejection fraction in the ra nge of 65- 70%. Normal left ventricular size. Wall thickness is normal. No regional wall motion abnormalities are present. RIGHT VENTRICLE Normal right ventricular size and systolic function. LEFT ATRIUM The left atrial size is normal. RIGHT ATRIUM The right atrial size is normal. ATRIAL SEPTUM Normal atrial septal thickness without atrial level shunting by limited color doppler interrogation. AORTA The aortic root and proximal ascending aorta are normal in size on limited imaging. MITRAL VALVE Structurally normal mitral valve. Mild mitral valve regurgitation. AORTIC VALVE Trileaflet aortic valve. Calcification of the right coronary cusp. Trace aortic valve regurgitation. TRICUSPID VALVE Structurally normal tricuspid valve. There is trace tricuspid valve regurgitation. The estimated pulmonary arterial pressure is 38.3 mmHg. PULMONARY VALVE No pulmonary valve regurgitation or stenosis. VESSELS The inferior vena cava is normal in size. PERICARDIUM No pericardial effusion. Stanislaw Javed MD (Electronically Signed) Final Date:31 December 2017 15:46
[2017-12-31] MEDS ORDERED: ACETAMINOPHEN 325 MG TAB PO PRN ×2 (16:00)
[2017-12-31] MEDS ORDERED: NALOXONE HCL 0.4 MG/ML AMP IV PUSH PRN (16:00)
[2017-12-31] MEDS ORDERED: LACTULOSE SYRUP 20 GM/30 ML CUP PO PRN (16:00)
[2017-12-31] MEDS ORDERED: SENNOSIDES 8.6 MG TAB PO PRN (16:00)
[2017-12-31] MEDS ORDERED: BISACODYL 10 MG SUPP RECTAL PRN (16:00)
[2017-12-31] MEDS ORDERED: ONDANSETRON HCL 4 MG/2 ML VIAL IVP PRN (16:00)
[2017-12-31] MEDS: HEPARIN SODIUM - SQ 10,000 UNITS/ML VIAL SQ SCH (17:00)
[2017-12-31] MEDS: DOCUSATE SODIUM 50 MG/SENNA 8.6 MG TAB PO SCH (20:53)
[2017-12-31] MEDS ORDERED: MEMANTINE HCL 5 MG TAB PO SCH (21:00)
[2017-12-31] MEDS ORDERED: GABAPENTIN 100 MG CAP PO SCH (21:00)
--- NOTE | 2018-01-01 00:21 | EKG ---
Date Performed: 12/30/2017 Time Performed: 16:20:52 PTAGE: 87 years EKG: Sinus rhythm POSSIBLE LEFT ATRIAL ENLARGEMENT SEPTAL MYOCARDIAL INFARCTION ABNORMAL ECG PREVIOUS TRACING : 05/04/2017 15.39 Since the prior tracing, there has been no significant irizarry DOCTOR: Faraz Crain Interpretating Date/Time 01/01/2018 00:19:36
[2018-01-01] MEDS: HEPARIN SODIUM - SQ 10,000 UNITS/ML VIAL SQ SCH (04:47)
[2018-01-01 05:15] VITALS: BP 120/62; PULSE 100; RESP 18; TEMP 98; O2SAT 100
--- NOTE | 2018-01-01 06:56 | MG ---
cc: Giles Deshpande MD, David J MD EEG NUMBER: [id number] INTERPRETATION An 87-year-old man, some slowing in the past, syncopal episode, AV fistula, anesthesia reaction. INTERPRETATION: Some diffuse 7-8 Hz rhythms are noted. The recording overall is synchronous and symmetric. No hemisphere asymmetry is noted. No epileptiform of seizure activity is seen. Hyperventilation is not performed. Photic stimulation is performed without significant posterior driving. IMPRESSION: Essentially normal awake EEG. Some minimal diffuse theta slowing was seen bilaterally but no focal abnormality was noted, no seizure activity was seen. Giles Deshpande MD DJM// , 05:48 PM , 11:34 PM
--- NOTE | 2018-01-01 06:58 | HHI.PR ---
Subjective Remarks Follow-up syncope patient pleasantly confused denies any complaints. Discussed with nursing, patient stable for discharge pending EEG Objective Vitals Vital Signs Date Time Temp Pulse Resp B/P (MAP) Pulse Ox O2 Delivery O2 Flow Rate FiO2 01/01/18 05:15 98.0 100 18 120/62 (81) 100 12/31/17 20:00 98.0 64 18 118/62 (80) 97 12/31/17 15:36 98.7 105 18 130/74 (92) 97 12/31/17 13:17 118/65 (82) 12/31/17 13:16 112/63 (79) 12/31/17 13:15 98.0 95 18 124/63 (83) 99 12/31/17 12:40 97.8 78 16 127/62 (83) 95 12/31/17 08:06 98.1 86 17 110/67 (81) 97 Result Diagram: 12/31/17 0624 12/31/17 0624 Imaging Last Impressions Head CT 12/30/17 0000 Signed Impressions: Service Date/Time: Saturday, December 30, 2017 16:44 - CONCLUSION: Negative for acute process. Richie Sorensen MD FACR Chest X-Ray 12/30/17 0000 Signed Impressions: Service Date/Time: Saturday, December 30, 2017 15:41 - CONCLUSION: No acute disease. Richie Sorensen MD FACR Objective Remarks GENERAL: This is a well-nourished, well-developed patient, in no apparent distress. SKIN: No rashes, ecchymoses or lesions. Cool and dry. CARDIOVASCULAR: Regular rate and rhythm without murmurs, gallops, or rubs. RESPIRATORY: Clear to auscultation. Breath sounds equal bilaterally. No wheezes , rales, or rhonchi. GASTROINTESTINAL: Abdomen soft, non-tender, nondistended. No guarding. MUSCULOSKELETAL: Extremities without clubbing, cyanosis, or edema. No joint tenderness, effusion, or edema noted. No calf tenderness. Negative Homans sign bilaterally. NEUROLOGICAL: Awake and alert. Cranial nerves II through XII intact. Motor and sensory grossly within normal limits. Five out of 5 muscle strength in all muscle groups. Normal speech. Procedures none A/P Problem List: (1) Syncope ICD Code: R55 - Syncope and collapse Status: Acute Assessment and Plan 87 y/o male with a history of ESRD with syncope while in HD Syncope, reportedly had low BP during hemodialysis. He is not orthostatic at this time. Syncope workup unremarkable so far pending EEG. Monitor telemetry unremarkable patient refusing. ESRD on HD, chronic, HD on M//-Consult nephrology Dr Toribio for recommendations Medical conditions of hypertension hyperlipidemia. Continue outpatient medications when appropriate DVT prophylaxis: SCDs and subcu heparin Discharge Planning Discharge if a Holter monitor and EEG unremarkable Discharge patient to [facility] Condition on discharge: Improved Regular Diet as tolerated Ad Anusha activity no driving Rx written: None Follow-up with primary care physician and nephrology Problem Qualifiers (1) Syncope: Qualified Codes: R55 - Syncope and collapse Otf Kohli MD Jan 01, 2018 06:58
[2018-01-01] MEDS: DOCUSATE SODIUM 50 MG/SENNA 8.6 MG TAB PO SCH (08:12)
[2018-01-01] MEDS: SODIUM CHLORIDE 0.9% FLUSH 10 ML FLUSH IV FLUSH SCH (08:13)
[2018-01-01 08:20] VITALS: BP 130/60; PULSE 70; RESP 20; TEMP 98.2; O2SAT 70
[2018-01-01] MEDS ORDERED: FERROUS SULFATE 325 MG (65 MG ELEMENTAL IRON) TAB PO SCH (09:00)
[2018-01-01] MEDS ORDERED: NON-FORMULARY DRUG (B-Complex Vitamins (Vitamin B Complex) 1 TAB) PO SCH (09:00)
[2018-01-01] MEDS ORDERED: FINASTERIDE 5 MG TAB PO SCH (09:00)
[2018-01-01] MEDS ORDERED: NON-FORMULARY DRUG (Ferrous Sulfate DR 324 MG) PO SCH (09:00)
[2018-01-01] MEDS ORDERED: VITAMIN B COMPLEX/VIT C TAB PO SCH (09:00)
[2018-01-01 11:48] VITALS: BP_SYST 122; BP_SYST 125; BP_SYST 127; BP_DIAS 68; BP_DIAS 73; PULSE 80; RESP 20; TEMP 98.2; O2SAT 96
== END 2018-01-01 16:26 ==
LOC: NEPC 12:56 → NEDA 17:58 → NEPGCP 20:01
PROVIDERS: ADMIT Hospitalist; ATTEND Hospitalist
DX: R55 Syncope and collapse (principal); I12.0 Hypertensive chronic kidney disease with stage 5 chronic kidney disease or end stage renal disease; N18.6 End stage renal disease; R41.82 Altered mental status, unspecified; R42 Dizziness and giddiness; R51 Headache; E78.00 Pure hypercholesterolemia, unspecified; R94.31 Abnormal electrocardiogram [ECG] [EKG]; I95.9 Hypotension, unspecified; J44.9 Chronic obstructive pulmonary disease, unspecified; F03.90 Unspecified dementia, unspecified severity, without behavioral disturbance, psychotic disturbance, mood disturbance, and anxiety; Z99.81 Dependence on supplemental oxygen; Z99.2 Dependence on renal dialysis
CPT/HCPCS: 70450; 71045; 80048; 81001; 82550; 82552; 83605; 83735; 84484; 85025; 85610; 85730; 87040; 93005; 93306; 95819; 99285; G0378; J1644